=== PATIENT | male | born 1955 | race Caucasian/White ===

== ENCOUNTER 2023-11-16 09:04 | Observation (INO) | payer OTHER ==
[2023-11-16 09:41] LABS: Absolute Basophils 0.1 K/uL (0-0.5); Absolute Eosinophils 0.2 K/uL (0-0.5); Absolute Lymphocytes (CBC) 1.5 K/uL (0.7-4.9); Absolute Monocytes 1.4 K/uL (0.1-1.3); Absolute Neutrophil 7.5 K/uL (1.8-8.0); Basophils % 0.7 % (0-1.3); Eosinophils % 1.9 % (0-4.4); Hematocrit 43.4 % (39.6-49.0); Hemoglobin 14.9 g/dL (13.6-17.9); Lymphocytes % 14.4 % (15.3-44.8); MCH 32.7 pg (27.0-35.0); MCHC 34.2 g/dL (32.0-36.0); MCV 95.4 fL (80-100); MPV 6.4 fL (7.6-11.3); Monocytes % 12.8 % (3.3-12.3); Neutrophils % 70.2 % (41.7-73.7); Nucleated Red Blood Cells % 0.1 % (0-0); Platelets 392 thou/uL (152-406); RBC Red Blood Cell Count 4.55 M/uL (4.33-5.43); Red Cell Distribution Width 12.9 % (12.1-15.2)
[2023-11-16 09:43] LABS: Protime INR 1.07
[2023-11-16 09:59] LABS: SARS-CoV-2 Antigen CONTROL BLUE LINE VIS/BG OK; SARS-CoV-2 Antigen Rapid Res Negative (Negative)
[2023-11-16 10:09] LABS: Albumin 3.2 g/dL (3.4-5.0); Albumin/Globulin Ratio 0.8 (1.1-1.8); Anion Gap 10.9 mEq/L (5.0-15.0); Bilirubin Direct 0.2 mg/dL (0-0.2); Bilirubin Indirect, Calculated 0.3 mg/dL (0.2-0.8); Bilirubin Total 0.5 mg/dL (0.2-1.0); Globulin 3.9 g/dL (2.3-3.5); Potassium 3.9 mEq/L (3.5-5.1); Protein, Total 7.1 g/dL (6.4-8.2); Troponin High Sensitivity 3.4 pg/mL (<58.9)
--- NOTE | 2023-11-16 11:11 | EDPHYS ---
Physician Documentation [facility] Name: Pastor Salter Age: 68 yrs Sex: Male : 1955 Arrival Date: 11/16/2023 Time: 09:04 Bed 20 Private MD: ED Physician Larry Pacheco HPI: 11/15 09:30 This 68 yrs old Male presents to ER via Ambulatory with complaints of Shortness Of sp3 Breath, Chest Pain, Flank Pain. 09:30 68-year-old male with history of COPD, hypertension, hyperlipidemia now presents to the [facility] ED with chief complaint shortness of breath, left-sided chest pain for approximately 2 to 3 weeks. He states he feels like "he is having an asthma attack. He does endorse cough but denies headache, neck pain, fever, upper respiratory/rhinorrhea type symptoms abdominal pain, nausea, vomiting, diarrhea, back pain, prolonged immobilization, recent travel history, known sick contacts, rash, syncope, near syncope, neurological deficits, or any other signs or symptoms on ROS at this time.. Historical: - Allergies: 09:13 PENICILLINS; ko1 - PMHx: 09:13 Chronic obstructive lung disease; Hypertensive disorder; Hypercholesterolemia; ko1 - PSHx: 09:14 None; ko1 - Immunization history:: Adult Immunizations unknown. - Infectious Disease History:: Denies. - Social history:: Smoking status: Patient reports the use of cigarette tobacco products, smokes one-half pack cigarettes per day. ROS: 09:31 Constitutional: Negative for fever, chills, and weight loss, Eyes: Negative for injury, sp3 pain, redness, and discharge, ENT: Negative for injury, pain, and discharge, Neck: Negative for injury, pain, and swelling, Abdomen/GI: Negative for abdominal pain, nausea, vomiting, diarrhea, and constipation, Back: Negative for injury and pain, MS/Extremity: Negative for injury and deformity, Skin: Negative for injury, rash, and discoloration, Neuro: Negative for headache, weakness, numbness, tingling, and seizure, Psych: Negative for depression, anxiety, suicide ideation, homicidal ideation, and hallucinations, Allergy/Immunology: Negative for hives, rash, and allergies, Endocrine: Negative for neck swelling, polydipsia, polyuria, polyphagia, and marked weight changes, Exam: 09:32 Constitutional: This is a well developed, well nourished patient who is awake, alert, sp3 and in no acute distress. Head/Face: Normocephalic, atraumatic. Eyes: Pupils equal round and reactive to light, extra-ocular motions intact. Lids and lashes normal. Conjunctiva and sclera are non-icteric and not injected. Cornea within normal limits. Periorbital areas with no swelling, redness, or edema. Neck: Trachea midline, no thyromegaly or masses palpated, and no cervical lymphadenopathy. Supple, full range of motion without nuchal rigidity, or vertebral point tenderness. No Meningismus. Chest/axilla: Normal chest wall appearance and motion. Nontender with no deformity. No lesions are appreciated. Cardiovascular: Regular rate and rhythm with a normal S1 and S2. No gallops, murmurs, or rubs. Normal PMI, no JVD. No pulse deficits. Respiratory: Lungs have equal breath sounds bilaterally, clear to auscultation and percussion. No rales, rhonchi or wheezes noted. No increased work of breathing, no retractions or nasal flaring. Abdomen/GI: Soft, non-tender, with normal bowel sounds. No distension or tympany. No guarding or rebound. No evidence of tenderness throughout. Back: No spinal tenderness. No costovertebral tenderness. Full range of motion. Skin: Warm, dry with normal turgor. Normal color with no rashes, no lesions, and no evidence of cellulitis. MS/ Extremity: Pulses equal, no cyanosis. Neurovascular intact. Full, normal range of motion. Neuro: Awake and alert, GCS 15, oriented to person, place, time, and situation. Cranial nerves II-XII grossly intact. Motor strength 5/5 in all extremities. Sensory grossly intact. Cerebellar exam normal. Normal gait. Psych: Awake, alert, with orientation to person, place and time. Behavior, mood, and affect are within normal limits. 09:32 ECG was reviewed by the Attending Physician. EKG demonstrates normal sinus rhythm at 85 bpm with normal intervals, normal QRS, normal axis, normal ST's ST segments without evidence of acute ischemia. Vital Signs: 09:14 BP 165 / 103; Pulse 95; Resp 16; Temp 97.4; Pulse Ox 95% on R/A; ko1 09:41 BP 153 / 105; Pulse 88; Resp 18; Pulse Ox 97% on R/A; ld1 11:04 BP 146 / 99; Pulse 91; Resp 18; Pulse Ox 96% on R/A; ld1 12:15 BP 162 / 89; Pulse 79; Resp 18; Pulse Ox 97% on R/A; ld1 MDM: 09:16 Patient medically screened. sp3 09:32 Data reviewed: vital signs, nurses notes, lab test result(s), EKG, radiologic studies. sp3 ED course: 68-year-old male with PMH above now with shortness of breath and chest pain. Differential diagnosis is broad and includes COPD exacerbation, bronchitis, pneumonia, upper respiratory infection, COVID-19, influenza, acute coronary syndrome and associated pathologies, PE, gastritis, GI related pathology, among others. Workup will be broad and include EKG, CT chest PE protocol, laboratory values, viral swabs and general supportive care. Disposition pending workup and patient course.. 11:09 ED course: Patient with large pleural effusion but no malignancy noted on CT chest. No sp3 PE noted either. Patient will get admitted for further workup and evaluation.. 11/15 09:17 Order name: Basic Metabolic Panel; Complete Time: 10:19 3 11/15 09:17 Order name: CBC with Diff; Complete Time: 10:19 3 11/15 09:17 Order name: LFT's; Complete Time: 10:19 sp11/15 09:17 Order name: Magnesium; Complete Time: 10:19 3 11/15 09:17 Order name: NT PRO-BNP; Complete Time: 10:19 3 11/15 09:17 Order name: PT-INR; Complete Time: 10:19 sp3 11/15 09:17 Order name: Troponin HS; Complete Time: 10:19 3 11/15 09:23 Order name: Flu; Complete Time: 10:19 3 11/15 09:23 Order name: SARS RAPID; Complete Time: 10:19 3 11/15 11:32 Order name: Basic Metabolic Panel EDKY 11/15 11:32 Order name: Basic Metabolic Panel EDKY 11/15 11:32 Order name: Basic Metabolic Panel EDKY 11/15 11:32 Order name: CBC with Automated Diff EDKY 11/15 11:32 Order name: CBC with Automated Diff EDMS 11/15 11:32 Order name: CBC with Automated Diff EDMS 11/15 11:32 Order name: Magnesium EDMS 11/15 11:32 Order name: Magnesium EDMS 11/15 11:32 Order name: Magnesium EDMS 11/15 11:32 Order name: Phosphorus EDMS 11/15 11:32 Order name: Phosphorus EDMS 11/15 11:32 Order name: Phosphorus EDMS 11/15 09:17 Order name: XRAY Chest (1 view); Complete Time: 11:29 sp3 11/15 09:23 Order name: CT Chest For PE Angio; Complete Time: 11:29 sp3 11/15 09:17 Order name: EKG; Complete Time: 09:17 sp3 11/15 11:32 Order name: CONS Physician Consult EDMS 11/15 09:17 Order name: Cardiac monitoring; Complete Time: 09:34 sp3 11/15 09:17 Order name: EKG - Nurse/Tech; Complete Time: 09:34 sp3 11/15 09:17 Order name: IV Saline Lock; Complete Time: 09:34 sp3 11/15 09:17 Order name: Labs collected and sent; Complete Time: 09:34 sp3 11/15 09:17 Order name: O2 Per Protocol; Complete Time: 09:20 sp3 11/15 09:17 Order name: O2 Sat Monitoring; Complete Time: 09:20 sp3 Administered Medications: No medications were administered Disposition Summary: 11/16/23 11:10 Hospitalization Ordered Notes: Hospitalization Status: Inpatient Admission sp3 Provider: Rios Rodriguez sp3 Location: Telemetry/[facility] (Inpatient) sp3 Condition: Stable sp3 Problem: an acute exacerbation sp3 Symptoms: have worsened sp3 Bed/Room Type: Standard sp3 Room Assignment: 220(11/16/23 13:23) em1 Diagnosis - Pleural effusion left side, shortness of breath, chest pain sp3 Forms: - Medication Reconciliation Form sp3 - SBAR form sp3 - Leadership Thank You Letter sp3 Signatures: Dispatcher [employer] Davidson Siu em1 Larry Pacheco MD MD sp3 Vilma Bradford, RN RN ko1 Corrections: (The following items were deleted from the chart) 13:23 11:10 sp3 em1
--- NOTE | 2023-11-16 11:11 | ER ---
Nurse's Notes [facility] [place] Name: Pastor Salter Age: 68 yrs Sex: Male : 1955 Arrival Date: 11/16/2023 Time: 09:04 Bed 20 Private MD: Diagnosis: Pleural effusion left side, shortness of breath, chest pain Presentation: 11/15 09:11 Chief complaint: Patient states: short of breath for about 3 weeks, more tight on the ko1 left side, occasional pain with inspiration on the left side. Feels like I cant get a full breath in. Coronavirus screen: At this time, the client does not indicate any symptoms associated with coronavirus-19. Ebola Screen: No symptoms or risks identified at this time. Initial Sepsis Screen: Does the patient meet any 2 criteria? No. Patient's initial sepsis screen is negative. Does the patient have a suspected source of infection? No. Patient's initial sepsis screen is negative. Risk Assessment: Do you want to hurt yourself or someone else? Patient reports no desire to harm self or others. Onset of symptoms is unknown. 09:11 Method Of Arrival: Ambulatory ko1 09:11 Acuity: MARYAM 3 ko1 Triage Assessment: 09:14 General: Appears in no apparent distress. Behavior is calm, cooperative, appropriate ko1 for age. Pain: Denies pain. Respiratory: Reports shortness of breath on exertion Onset: The symptoms/episode began/occurred at an unknown time. the patient has mild shortness of breath. Historical: - Allergies: 09:13 PENICILLINS; ko1 - PMHx: 09:13 Chronic obstructive lung disease; Hypertensive disorder; Hypercholesterolemia; ko1 - PSHx: 09:14 None; ko1 - Immunization history:: Adult Immunizations unknown. - Infectious Disease History:: Denies. - Social history:: Smoking status: Patient reports the use of cigarette tobacco products, smokes one-half pack cigarettes per day. Screenin:[address] [facility] ED Fall Risk Assessment (Adult) History of falling in the last 3 months, ld1 including since admission No falls in past 3 months (0 pts) Confusion or Disorientation No (0 pts) Intoxicated or Sedated No (0 pts) Impaired Gait No (0 pts) Mobility Assist Device Used No (0 pt) Altered Elimination No (0 pt) Score/Fall Risk Level 0 - 2 = Low Risk Oriented to surroundings, Maintained a safe environment, Educated pt \T\ family on fall prevention, incl call for assistance when getting out of bed, Assessed \T\ reinforced patient's understanding of fall precautions, Provided non-skid footwear, Hourly rounding (assess needs \T\ fall precautionary measures) done, Used ambulatory aids as needed (educated on \T\ assisted with), Used gait belt as appropriate. Abuse screen: Denies threats or abuse. Denies injuries from another. Nutritional screening: No deficits noted. Tuberculosis screening: No symptoms or risk factors identified. Assessment: 09:41 General: Appears in no apparent distress. comfortable, Behavior is calm, cooperative, ld1 appropriate for age. Pain: Denies pain. Neuro: Level of Consciousness is awake, alert, obeys commands, Oriented to person, place, time, situation, Appropriate for age. Cardiovascular: Capillary refill < 3 seconds Patient's skin is warm and dry. Rhythm is sinus rhythm. Respiratory: Reports shortness of breath at rest on exertion Airway is patent Respiratory effort is even, unlabored, Breath sounds are clear bilaterally. GI: Abdomen is flat, non-distended. : No signs and/or symptoms were reported regarding the genitourinary system. EENT: No signs and/or symptoms were reported regarding the EENT system. Derm: No signs and/or symptoms reported regarding the dermatologic system. Musculoskeletal: No signs and/or symptoms reported regarding the musculoskeletal system. Vital Signs: 09:14 BP 165 / 103; Pulse 95; Resp 16; Temp 97.4; Pulse Ox 95% on R/A; ko1 09:41 BP 153 / 105; Pulse 88; Resp 18; Pulse Ox 97% on R/A; ld1 11:04 BP 146 / 99; Pulse 91; Resp 18; Pulse Ox 96% on R/A; ld1 12:15 BP 162 / 89; Pulse 79; Resp 18; Pulse Ox 97% on R/A; ld1 ED Course: 09:08 Patient arrived in ED. mg5 09:13 Triage completed. ko1 09:14 Arm band placed on right wrist. Patient placed in an exam room, on a stretcher, on ko1 hall monitor, on pulse oximetry, Patient notified of wait time. 09:15 Larry Pacheco MD is Attending Physician. sp3 09:20 Florian, Marge, RN is Primary Nurse. ld1 09:34 Inserted saline lock: 20 gauge in right antecubital area, using aseptic technique. ld1 Blood collected. Flushed with 10 mL NS. 09:41 Patient has correct armband on for positive identification. Placed in gown. Bed in low ld1 position. Call light in reach. Side rails up X2. hall monitor on. Pulse ox on. NIBP on. Door closed. Noise minimized. Warm blanket given. 09:41 SARS RAPID Sent. ld1 09:41 Flu Sent. ld1 09:50 XRAY Chest (1 view) In Process Unspecified. EDMS 10:07 CT Chest For PE Angio In Process Unspecified. EDMS 11:10 Rios Rodriguez is Hospitalizing Provider. sp3 12:03 203 CM met with Mr Simons and his Ashley at the bedside in the ED exam room. ane Patient identified by name and . Demographic sheet confirmed. Mr Simons states he lives with his Ashley in a single story home. He reports prior to admission, he performs ADLs independently and without physical limitations. He states he has an MPOA in place, no DME, no HH, no home oxygen or other medical services at this time. 1210 Judith Ramsey at the bedside to discuss plan of care. 1218 Patient wishes to return home upon discharge and Ashley states she will transport Mr Simons home when he is discharged. CM team will continue to follow and coordinate care. Administered Medications: No medications were administered Outcome: 11:10 Decision to Hospitalize by Provider. sp3 14:31 Admitted to Med/surg tl4 14:31 Condition: stable 14:31 Instructed on the need for admit, 14:31 Patient left the ED. tl4 Signatures: Dispatcher [employer] EDMS Marge Florian, RN RN ld1 Larry Pacheco MD MD sp3 Vilma Bradford, TAMIA RN Sindi Kruse mg5 Wilfred Vila RN RN tl4 Rayna Hui RN RN ane
--- NOTE | 2023-11-16 11:20 | RAD REPORT ---
EXAM DESCRIPTION: Yuri Single View11/16/2023 9:48 am CLINICAL HISTORY: Shortness of breath COMPARISON: 2014 FINDINGS: Large left pleural effusion with passive left atelectasis Right lung appears clear of acute infiltration. Heart is normal size Due to technical issues this exam could not be dictated until now. A preliminary report was given to the emergency room IMPRESSION: Large left pleural effusion
--- NOTE | 2023-11-16 11:23 | RAD REPORT ---
EXAM DESCRIPTION: CT - Chest For Pe Angio - 11/16/2023 10:05 am CLINICAL HISTORY: Chest pain COMPARISON: None. TECHNIQUE: Dynamically enhanced axial 3 mm thick images of the chest were obtained during administra tion of 100 mL Isovue 370 IV contrast. Coronal and oblique reconstruction images were generated and r eviewed. Exam utilizes a protocol for optimal evaluation of pulmonary arterial tree. Maximum intensity projections 3D imaging was utilized All CT scans are performed using dose optimization technique as appropriate and may include automated exposure control or mA/KV adjustment according to patient size. FINDINGS: A pulmonary embolus is not seen. A thoracic aortic aneurysm is not noted. Large left pleural effusion with passive left lung atelectasis. After the pleural effusion has resolv ed followup CT chest recommended to assess the left lung Mild bilateral ground-glass lung opacities Chronic deformity L1 vertebral body Due to technical issues this exam could not be dictated until now. A preliminary report was given to the emergency room IMPRESSION: Negative for a pulmonary embolism. Large left pleural effusion Mild bilateral ground-glass opacities may represent pulmonary edema, pneumonia or pneumonitis
[2023-11-16] MEDS ORDERED: ACETAMINOPHEN 500 MG TAB PO PRN (11:26)
[2023-11-16] MEDS ORDERED: ACETAMINOPHEN 325 MG TABLET PO PRN (11:26)
[2023-11-16] MEDS ORDERED: HYDRALAZINE HCL 20 MG/ML VIAL IV PRN (11:30)
--- NOTE | 2023-11-16 12:23 | P.CNS ---
Date of Consult: 11/16/23 Reason for Consult: Large left-sided pleural effusion Chief Complaint: Chest pain shortness of breath History of Present Illness: Is 68 years of age heavy smoker admitted with 3-week onset of increasing left- sided pleuritic chest pain associated with dyspnea became progressively worse and it appeared in the emergency room and was found to have a massive left-sided pleural effusion - Past Medical/Surgical History Diabetic: No -: Hyperlipidemia -: Pretension Past Surgical History: Patient denies surgical history Review of Systems 10-point ROS is otherwise unremarkable Physical Examination General: Alert, Oriented x3 HEENT: Atraumatic Neck: Supple Respiratory: Diminished (Markedly diminished on the left side) Cardiovascular: No edema, Regular rate/rhythm, Normal S1 S2 Gastrointestinal: Normal bowel sounds, Soft and benign Laboratory Data (last 24 hrs) 11/16/23 11/16/23 11/16/23 09:32 09:32 09:32 WBC 10.60 Hgb 14.9 Hct 43.4 Plt Count 392 PT 12.0 INR 1.07 Sodium 133 L Potassium 3.9 BUN 5 L Creatinine 0.69 L Glucose 101 Magnesium 2.0 Total Bilirubin 0.5 AST 20 ALT 24 Alkaline Phosphatase 87 - Problems (1) Pleural effusion Current Visit: Yes Status: Acute Plan: Patient is 68 years of age admitted with a massive left-sided pleural effusion has been symptomatic for the past 3 weeks heavy smoker most likely this is lung cancer large-volume thoracentesis pleural fluids studies have been ordered will discharge after thoracentesis will follow-up with me next week the patient about the possibility of malignancy labs chemistries all reviewed
--- NOTE | 2023-11-16 13:36 | P.HP ---
Certification for Inpatient Patient admitted to: Observation With expected LOS: <2 Midnights Patient will require the following post-hospital care: None Practitioner: I am a practitioner with admitting privileges, knowledge of patient current condition, hospital course, and medical plan of care. Services: Services provided to patient in accordance with Admission requirements found in Title 42 Section 412.3 of the Code of Federal Regulations Patient History Date of Service: 11/16/23 Reason for admission: Chest pain shortness of breath History of Present Illness: Pastor Salter is a 68 year old male with Pmhx COPD, asthma, HTN, and hypercholesterolemia who presents to the ED with chief complaint of SOB with left-sided chest pain for three weeks which has worsened and now feel like his left lung is collapsed. He reports cigarette smoking and marijuana use but has cut back since he has not been able to breathe well. Both CTA chest and chest xray are showing a large pleural effusion to the left lung space. Laboratory evaluation unremarkable, blood pressure elevated 161/103, heart rate 95, afebrile. He is in no acute distress, on room air, and will be admitted for further treatment of left large pleural effusion, Dr. Wong consulted. CTA chest reports "Negative for a pulmonary embolism. Large left pleural effusion. Mild bilateral ground-glass opacities may represent pulmonary edema, pneumonia or pneumonitis." Chest x-ray reports "Large left pleural effusion with passive left atelectasis. Right lung appears clear of acute infiltration. Heart is normal size." Pastor will be admitted to hospitalist service for further treatment of left large pleural effusion Allergies Penicillins Allergy (Verified 11/16/23 15:24) Hives/Rash Home Medications: Ezetimibe [Zetia*] 10 mg PO DAILY 11/16/23 Nebivolol HCl 2.5 mg PO DAILY 11/16/23 Olmesartan Medoxomil 20 mg PO BEDTIME 11/16/23 Tadalafil [Cialis] 5 mg PO DAILY 11/16/23 terbinafine HCL [Terbinafine HCl] 250 mg PO DAILY 11/16/23 - Past Medical/Surgical History Diabetic: No -: Hyperlipidemia -: Hypertension -: COPD Past Surgical History: Patient denies surgical history - Social History Smoking Status: Current every day smoker Alcohol use: Yes CD- Drugs: Yes Physical Examination - Physical Exam General: Alert, In no apparent distress, Oriented x3 HEENT: Atraumatic, Normocephalic, PERRLA Neck: Supple, 2+ carotid pulse no bruit Respiratory: Normal air movement, Diminished (Left lung reynolds) Cardiovascular: Normal pulses, Regular rate/rhythm, Normal S1 S2 Capillary refill: <2 Seconds Gastrointestinal: Normal bowel sounds, Soft and benign Musculoskeletal: No clubbing Integumentary: No rashes Neurological: Normal speech, Normal tone - Studies Laboratory Data (last 24 hrs) 11/16/23 11/16/23 11/16/23 09:32 09:32 09:32 WBC 10.60 Hgb 14.9 Hct 43.4 Plt Count 392 PT 12.0 INR 1.07 Sodium 133 L Potassium 3.9 BUN 5 L Creatinine 0.69 L Glucose 101 Magnesium 2.0 Total Bilirubin 0.5 AST 20 ALT 24 Alkaline Phosphatase 87 Microbiology Data (last 24 hrs): 11/16/23 09:35 Nasopharnyx Influenza Type A Antigen Screen - Final 11/16/23 09:35 Nasopharnyx Influenza Type B Antigen Screen - Final Assessment and Plan - Plan Assessment and Plan Acute Left Large Pleural Effusion History of COPD/asthma -Chest x-ray reports "large left pleural effusion with passive left atelectasis. Right lung appears clear of acute infiltration. Heart is normal size." -CT chest PE protocol reports "Negative for a pulmonary embolism. Large left pleural effusion. Mild bilateral ground-glass opacities may represent pulmonary edema, pneumonia or pneumonitis." -Consult Dr. Bailey -N.p.o. at midnight, thoracentesis in the a.m. -follow pathology s/p thoracentesis -Oxygen supplementation as needed Hisotry of HTN/hypercholesterolemia -Continue home medication Cigarette smoking abuse Marijuana abuse -cessation education provided DVT PPx SCDs Full code 24 hour OBS Discharge Plan: Home Plan to discharge in: 24 Hours - Advance Directives Does patient have a Living Will: No Does patient have a Durable POA for Healthcare: No
[2023-11-16 15:16] VITALS: O2SAT 97
[2023-11-16 15:24] VITALS: BMI 24.1
[2023-11-16] MEDS: VALSARTAN 80 MG TAB PO SCH (20:21)
[2023-11-16] MEDS ORDERED: HOME MED 1 EA UNK (Olmesartan Medoxomil [Olmesartan Medoxomil] 20 MG Tablet) PO SCH (21:00)
[2023-11-17 04:38] LABS: Absolute Basophils 0.1 K/uL (0-0.5); Absolute Eosinophils 0.4 K/uL (0-0.5); Absolute Lymphocytes (CBC) 1.7 K/uL (0.7-4.9); Absolute Monocytes 1.5 K/uL (0.1-1.3); Absolute Neutrophil 6.9 K/uL (1.8-8.0); Basophils % 0.6 % (0-1.3); Hematocrit 42.3 % (39.6-49.0); Hemoglobin 14.4 g/dL (13.6-17.9); Lymphocytes % 16.1 % (15.3-44.8); MCH 32.4 pg (27.0-35.0); MCHC 34.2 g/dL (32.0-36.0); MCV 94.8 fL (80-100); MPV 6.4 fL (7.6-11.3); Monocytes % 14.3 % (3.3-12.3); Platelets 360 thou/uL (152-406); RBC Red Blood Cell Count 4.46 M/uL (4.33-5.43)
[2023-11-17 08:18] VITALS: TEMP 97.8
[2023-11-17] MEDS ORDERED: NEBIVOLOL HCL 2.5 MG PO SCH (09:00)
--- NOTE | 2023-11-17 09:43 | RAD REPORT ---
EXAM DESCRIPTION: US - Thoracentesis w/ US Guide - 11/17/2023 9:35 am CLINICAL HISTORY: Pleural effusion. Left sided effusion COMPARISON: <Comparisons> FINDINGS: Preoperative diagnosis: Left pleural Post operative diagnosis: Same Conscious Sedation: None. Estimated blood loss: Minimal Specimens:A small volume of fluid was sent for requested lab studies. 1.5 liter of fluid was aspirate d. Complications: None Imaging: Ultrasound IMPRESSION: Successful ultrasound-guided thoracentesis as detailed. 1.5 liter of fluid was evacuated from the left pleural space .
--- NOTE | 2023-11-17 09:51 | RAD REPORT ---
EXAM DESCRIPTION: RAD - Chest Single View - 11/17/2023 9:43 am CLINICAL HISTORY: Status Post Thorocentesis COMPARISON: Chest Single View dated 11/16/2023; CHEST PA AND LAT 2 VIEW dated 06/02/2014; Thoracentesis w/ US Guide dated 11/17/2023; Chest For Pe Angio dated 11/16/2023 FINDINGS: Lines: None. Lungs: Likely atelectasis as result of the pleural fluid. Pleural: Mild decrease in size of the left pleural effusion which remains moderate. No pneumothorax . Cardiac: Partially obscured. Mediastinum: Within normal limits. Bones: No acute fractures. Other: None IMPRESSION: Mild decrease in size of the left pleural effusion following thoracentesis. 1.5 liter of fluid was aspirated. The effusion remains moderate. There is presumably underlying atelectasis. Solomon elate with fluid analysis. No pneumothorax.
[2023-11-17] MEDS: NEBIVOLOL HCL 5 MG TAB PO SCH (11:05)
[2023-11-17] MEDS: EZETIMIBE 10 MG TAB PO SCH (11:05)
[2023-11-17] MEDS: terbinafine HCL 250 MG TAB PO SCH (11:05)
[2023-11-17 11:06] VITALS: BP 178/98
--- NOTE | 2023-11-17 12:07 | P.PN ---
Subjective Date of Service: 11/17/23 Chief Complaint: S/p thoracentesis massive left-sided pleural effusion Is doing much better shortness of breath is improved 1.5 L of fluid was drained Review of Systems 10-point ROS is otherwise unremarkable Physical Examination - Vital Signs Temperature: 97.8 F Blood Pressure: 178/98 Pulse: 84 Respirations: 16 Pulse Ox (%): 93 - Physical Exam General: Alert, Oriented x3 Respiratory: Clear to auscultation bilaterally, Diminished (Patient on the left side) Cardiovascular: No edema, Regular rate/rhythm - Studies Microbiology Data (last 24 hrs): 11/16/23 09:35 Nasopharnyx Influenza Type A Antigen Screen - Final 11/16/23 09:35 Nasopharnyx Influenza Type B Antigen Screen - Final Assessment And Plan - Current Problems (Diagnosis) (1) Pleural effusion Current Visit: Yes Status: Acute Plan: Patient is 68 years of age admitted with a massive left-sided pleural effusion most likely is malignant s/p thoracentesis doing much better after 1 and 1.5 L of fluid drained plan to discharge home if the postop chest x-ray 2 hours after thoracentesis does not show any evidence of pneumothorax to follow-up with me next week
[2023-11-17 12:11] LABS: Appearance TURBID (CLEAR); Body Fluid Source PLEURAL; Body Fluid WBC 1981 /mm^3; Color of fluid Red (COLORLESS); Fluid Total Cells Count 100
[2023-11-17 12:12] LABS: Body Fluid Lymphocytes 34 %
--- NOTE | 2023-11-17 13:06 | P.DS ---
Admission Date: 11/16/23 Discharge Date: 11/17/23 Disposition: ROUTINE DISCHARGE Discharge Condition: FAIR Reason for Admission: S/p thoracentesis massive left-sided pleural effusion Brief History of Present Illness: Diagnosis Acute Left Large Pleural Effusion s/p left thoracentesis History of COPD/asthma Hisotry of HTN/hypercholesterolemia Cigarette smoking abuse Marijuana abuse HPI 11/16/2023 Pastor Salter is a 68 year old male with Pmhx COPD, asthma, HTN, and hypercholesterolemia who presents to the ED with chief complaint of SOB with left-sided chest pain for three weeks which has worsened and now feel like his left lung is collapsed. He reports cigarette smoking and marijuana use but has cut back since he has not been able to breathe well. Both CTA chest and chest xray are showing a large pleural effusion to the left lung space. Laboratory evaluation unremarkable, blood pressure elevated 161/103, heart rate 95, afebrile. He is in no acute distress, on room air, and will be admitted for further treatment of left large pleural effusion, Dr. Wong consulted. CTA chest reports "Negative for a pulmonary embolism. Large left pleural effusion. Mild bilateral ground-glass opacities may represent pulmonary edema, pneumonia or pneumonitis." Chest x-ray reports "Large left pleural effusion with passive left atelectasis. Right lung appears clear of acute infiltration. Heart is normal size." Pastor will be admitted to hospitalist service for further treatment of left large pleural effusion Hospital Course: Pastor Salter is a pleasant 68-year-old male with a past medical history significant for COPD, asthma, HTN, and hypercholesterolemia who was admitted to the [facility] on 11/16/2023 for large left pleural effusion. Care presented to the ED with chief complaint of chest pain for 3 weeks and increased worsening breathing. He described his chest pain as feeling like his left lung was collapsed. He reports quitting smoking 2 weeks ago when this all occurred. CTA chest and chest x-ray both revealed left large pleural effusion. Dr. Kendall was consulted and ordered a thoracentesis which was performed on 11/17/2023. He has tolerated procedure well, now has clear breath sounds to left pleural space, afebrile, pain well-controlled, on room air, and hemodynamically stable for discharge. On 11/17/2023, Pastor was seen on morning rounds and deemed medically stable for discharge. Pastor was discharged with instructions to schedule follow-up appointments with PCP and Dr. Kendall. Pastor was provided prescriptions for tra madol. Physical Exam General: AAO x3, NAD HEENT: Atraumatic, Normocephalic, PERRLA Neck: Supple, 2+ carotid pulse no bruit Respiratory: Normal air movement, bilaterally clear breath sounds, symmetrical chest wall movement, on room air Cardiovascular: Normal pulses, RRR, Normal S1 S2 Capillary refill: <2 Seconds Gastrointestinal: Normal bowel sounds, Soft and benign on palpation, ND/NT Musculoskeletal: No clubbing Integumentary: No rashes Neurological: Normal speech, Normal tone Vital Signs/Physical Exam: Temp Pulse Resp BP Pulse Ox 97.8 F 84 16 178/98 H 93 11/17/23 12:07 11/17/23 12:07 11/17/23 12:07 11/17/23 12:07 11/17/23 12:07 Laboratory Data at Discharge: WBC 10.50 thou/uL (4.3-10.9) 11/17/23 04:01 Hgb 14.4 g/dL (13.6-17.9) 11/17/23 04:01 Hct 42.3 % (39.6-49.0) 11/17/23 04:01 Plt Count 360 thou/uL (152-406) 11/17/23 04:01 PT 12.0 SECONDS (9.4-12.5) 11/16/23 09:32 INR 1.07 11/16/23 09:32 Sodium 133 mEq/L (136-145) L 11/17/23 04:01 Potassium 4.0 mEq/L (3.5-5.1) 11/17/23 04:01 BUN 6 mg/dL (7-18) L 11/17/23 04:01 Creatinine 0.70 mg/dL (0.70-1.30) 11/17/23 04:01 Glucose 90 mg/dL (74-106) 11/17/23 04:01 Phosphorus 3.0 mg/dL (2.5-4.9) 11/17/23 04:01 Magnesium 2.0 mg/dL (1.6-2.4) 11/17/23 04:01 Total Bilirubin 0.5 mg/dL (0.2-1.0) 11/16/23 09:32 AST 20 U/L (15-37) 11/16/23 09:32 ALT 24 U/L (16-61) 11/16/23 09:32 Alkaline Phosphatase 87 U/L (45-117) 11/16/23 09:32 Home Medications: Ezetimibe [Zetia*] 10 mg PO DAILY 11/16/23 Nebivolol HCl 2.5 mg PO DAILY 11/16/23 Olmesartan Medoxomil 20 mg PO BEDTIME 11/16/23 Tadalafil [Cialis] 5 mg PO DAILY 11/16/23 terbinafine HCL [Terbinafine HCl] 250 mg PO DAILY 11/16/23 traMADol HCL [Ultram*] 50 mg PO Q6H PRN 4 Days #15 tab 11/17/23 New Medications: traMADol HCL [Ultram*] 50 mg PO Q6H PRN 4 Days #15 tab PRN Reason: Pain Physician Discharge Instructions: Thoracentesis successfully aspirated 1.5 liters. Specimen was sent to pathology for further testing and results will be reviewed at your visit with Dr. Kendall. Please use the incentive spirometer to help inflate your lung. 1. Please call and schedule a follow-up appointment with your PCP in 3-5 days - Please follow-up with your PCP for medication refills/adjustments 2. Please call and schedule a follow-up appointment with Dr. Kendall in one week -Fluid results will be discussed at that time. 3. Continue regular diet 4. activity restrictions, do not lift > 10 pounds for three days 5. Return to the ED if symptoms worsen New medications Tramadol 50 mg p.o. every 6 hours for 4 days Diet: Regular Activity: No lifting more than 10 lbs Followup: Jovan Santana MD [Primary Care Provider] - Jean-Pierre Kendall MD [ACTIVE - CAN ADMIT] -
--- NOTE | 2023-11-17 13:37 | RAD REPORT ---
EXAM DESCRIPTION: RADChest Single View11/17/2023 1:17 pm CLINICAL HISTORY: S/p FNA COMPARISON: Chest Single View dated 11/17/2023; Chest Single View dated 11/16/2023; CHEST PA AND LAT 2 V IEW dated 06/02/2014; Chest For Pe Angio dated 11/16/2023; Thoracentesis w/ US Guide dated 11/17/2023 TECHNIQUE: Portable AP view of the chest. FINDINGS: Decreased inspiratory effort somewhat limits evaluation. Stable patchy left central to bas al airspace opacities, with stable moderate left effusion. No pneumothorax or right-sided effusion. The cardiomediastinal contours are unremarkable. IMPRESSION: Stable left central bibasilar airspace opacities, with moderate effusion. No pneumothora x observed following thoracentesis.
--- NOTE | 2023-11-17 14:08 | EKG ---
Test Date: 2023-11-16 Test Time: 09:27:21 Crew Scheduler: Zia WILKES MEASUREMENT RESULTS: Intervals: Rate: 85 MD: 164 QRSD: 54 QT: 368 QTc: 437 [place]: P: 53 MD: 164 QRS: 46 T: 45 INTERPRETIVE STATEMENTS: Normal sinus rhythm Low voltage QRS Borderline ECG No previous ECG available for comparison Electronically Signed On 11-17-23 14:06:50 CDT by Joce Garrett
[2023-11-22 05:31] LABS: TOTAL PROTEIN, PLEURAL FLUID 4.3 g/dL
== END 2023-11-17 14:17 | disposition home or self-care (01) ==
LOC: ER 09:04 → ERHOLD 11:26 → 2ND 13:47
PROVIDERS: ADMIT Internal Medicine; ATTEND Internal Medicine
DX: J90 Pleural effusion, not elsewhere classified (principal); R07.9 Chest pain, unspecified; R06.02 Shortness of breath; J44.9 Chronic obstructive pulmonary disease, unspecified; J45.909 Unspecified asthma, uncomplicated; I10 Essential (primary) hypertension; E78.00 Pure hypercholesterolemia, unspecified; F17.210 Nicotine dependence, cigarettes, uncomplicated; F12.90 Cannabis use, unspecified, uncomplicated; Z88.0 Allergy status to penicillin; Z11.52 Encounter for screening for COVID-19
CPT/HCPCS: 93005; 85025 ×2; 80048 ×2; 36415; 88108; 89050; 83735 ×2; 87205; 83615; 84100; 84157; 85610; 82945; 80076; 88305; 84484; 87015; 87206; 83880; 87116; 87102; 87804 ×2; 71275; 71045 ×3; 32555; 99285; 84311; 87811; Q9967; G0378; J0360

== ENCOUNTER 2023-11-29 11:39 | Day surgery (SDC) | payer OTHER ==
[2023-11-29] MEDS ORDERED: Ringers Lactate 1,000 ML IV ONE (12:00)
[2023-11-29] MEDS ORDERED: dexAMETHasone 10 MG/ML VIAL ONE (12:52)
[2023-11-29] MEDS ORDERED: LIDOCAINE 2% MPF 5 ML VIAL ONE (12:52)
[2023-11-29] MEDS ORDERED: FENTANYL CITR 100 MCG/2 ML ONE (12:52)
[2023-11-29] MEDS ORDERED: ONDANSETRON 4 MG/2 ML VIAL ONE (12:52)
[2023-11-29] MEDS ORDERED: MIDAZOLAM HCL 2 MG/2 ML INJ ONE (12:52)
[2023-11-29] MEDS ORDERED: propofoL 200 MG/20 ML VIAL IV ONE (12:52)
[2023-11-29] MEDS ORDERED: KETOROLAC 30 MG/ML INJ ONE (12:52)
[2023-11-29] MEDS ORDERED: LIDOCAINE HCL/EPINEPHRINE 20 ML MDV ONE (12:53)
[2023-11-29] MEDS ORDERED: CLINDAMYCIN 300MG D5W 300 MG/50 ML BAG IV SCH (13:00)
--- NOTE | 2023-11-29 14:01 | P.OP ---
Preoperative diagnosis: LEFT Malignant Effusion Postoperative diagnosis: LEFT Malignant Effusion Primary procedure: Placement of LEFT Thoracic Pleur-X Drain Anesthesia: MAC + Local Estimated blood loss: < 1cc Specimen: Pleural Fluid Findings: 1 Liter of Pleural Fluid Complications: None Drain(s): Other (Pleur-X ) Transferred to: Recovery Room Condition: Good
--- NOTE | 2023-11-29 14:36 | RAD REPORT ---
Procedure: Chest Single View History: Device placement pleural catheter placement Comparison: November 17, 2023 A left pleural catheter has been placed. The catheter extends medially and then inferiorly. The dista l portions of the catheter extend laterally with its tip near the left lower chest wall. A pneumothorax is not visualized. Large pleural effusion appears to be present. IMPRESSION: Placement of a left pleural catheter. A pneumothorax is not seen
[2023-11-29 15:49] VITALS: BP 145/81; TEMP 96.8; O2SAT 95
--- NOTE | 2023-11-29 20:45 | OP ---
Date of Procedure: 11/29/2023 Surgeon: Kory Blackwell MD, Preoperative Diagnosis: Left malignant effusion. Postoperative Diagnosis: Left malignant effusion. Procedure Performed: Placement of thoracic PleurX catheter. Anesthesia: MAC plus local 1% lidocaine. Estimated Blood Loss: 1 cc. Specimen: Pleural fluid. Findings: 1 L of pleural fluid returned. Complications: None. Implant/drain: PleurX catheter. Condition: The patient was transferred to recovery room in good condition. Procedure In Detail: After informed consent was obtained, the patient was brought to the operating r oom, prepped and draped in the usual sterile fashion. After adequate anesthesia was achieved, I anes thetized an area of the fourth to fifth intercostal space on the left thoracic space near the nipple line. I then entered the chest wall cavity with the Finder needle and ultimately cannulated the ches t cavity returning dark reddish straw-colored fluid. A wire was advanced at this point into the cavi ty without evidence of complication. I then found an area on the chest wall anterior inferior from t he insertion site. I made a counter incision, anesthetized the tract, and then placed a tunneling de vice through this site. I performed sequential dilatation using Seldinger technique, ultimately plac ed the catheter using the introducer sheath into the chest cavity without incident or complication. Straw-colored fluid was immediately returned. Cuff was in good anatomic position, pulled approximate ly 1 L of dark red straw-colored fluid, and it was sent for analysis at this point. The area was irr igated and closed with interrupted silk suture and sterile dressing was placed over top. The patient tolerated the procedure well without incident or complication and transferred to PACU in good condit ion. All counts were correct at the end of the case. TK/MODL Voice ID: [id number] Report ID: [id number]
== END 2023-11-29 15:42 | disposition home or self-care (01) ==
LOC: OR 11:39
PROVIDERS: ATTEND Surgery
PROC: 0W9B30Z Drainage of Left Pleural Cavity with Drainage Device, Percutaneous Approach (ICD-10-PCS; principal; 2023-11-29 14:15)
DX: J90 Pleural effusion, not elsewhere classified (principal)
CPT/HCPCS: 71045; 87015; 87070; 87116; 87206; 88108; 88305; J1100; J2001; J2250; J2405; J2704; J3010; J7120

== ENCOUNTER 2024-01-19 06:51 | Day surgery (SDC) | payer OTHER ==
[2024-01-18 14:19] LABS: Absolute Basophils 0.1 K/uL (0-0.5); Absolute Eosinophils 0.3 K/uL (0-0.5); Absolute Monocytes 1.9 K/uL (0.1-1.3); Absolute Neutrophil 11.5 K/uL (1.8-8.0); Basophils % 0.7 % (0-1.3); Hematocrit 40.6 % (39.6-49.0); Hemoglobin 13.5 g/dL (13.6-17.9); Lymphocytes % 12.7 % (15.3-44.8); MCH 30.5 pg (27.0-35.0); MCHC 33.3 g/dL (32.0-36.0); MCV 91.5 fL (80-100); MPV 6.3 fL (7.6-11.3); Monocytes % 11.8 % (3.3-12.3); Neutrophils % 72.8 % (41.7-73.7); Platelets 409 thou/uL (152-406); RBC Red Blood Cell Count 4.44 M/uL (4.33-5.43); Red Cell Distribution Width 12.4 % (12.1-15.2)
[2024-01-18 14:34] LABS: Anion Gap 8.2 mEq/L (5.0-15.0); Potassium 4.2 mEq/L (3.5-5.1)
[2024-01-18 14:45] LABS: Anisocytosis 1+; Blood Morphology Comment NOTED (NOT SEEN); Macrocytosis 1+; Microcytosis 1+; Platelet Estimate ADEQ; White Blood Cell Scan OK (OK)
[2024-01-19] MEDS ORDERED: NS 0.9% VIAL 20 ML ONE (07:06)
[2024-01-19] MEDS ORDERED: LIDOCAINE 1% 20 ML MDV ONE (07:07)
[2024-01-19] MEDS ORDERED: Ringers Lactate 1,000 ML IV ONE (07:08)
[2024-01-19] MEDS ORDERED: ONDANSETRON 4 MG/2 ML VIAL ONE (08:33)
[2024-01-19] MEDS ORDERED: LIDOCAINE 2% MPF 5 ML VIAL ONE (08:33)
[2024-01-19] MEDS ORDERED: propofoL 200 MG/20 ML VIAL IV ONE (08:33)
[2024-01-19] MEDS ORDERED: MIDAZOLAM HCL 2 MG/2 ML INJ ONE (08:35)
[2024-01-19] MEDS ORDERED: FENTANYL CITR 100 MCG/2 ML ONE (08:35)
[2024-01-19] MEDS: CEFAZOLIN SODIUM 2 GM/VIAL ONE (09:30)
[2024-01-19] MEDS ORDERED: Mastisol Adhesive Liq ONE (09:54)
[2024-01-19] MEDS: HEPARIN 5000 UNIT/ML 1 ML VIAL ONE (10:00)
--- NOTE | 2024-01-19 10:34 | P.OP ---
Date of Service: 01/19/24 Preop diagnosis: Lung cancer Postop diagnosis: Same Procedure performed: Placement of right IJ Port-A-Cath device with utilization of Doppler and fluoroscopy Surgeon: Enoch Parker MD Associate Dean Of Women: None Estimated blood loss: Minimal Specimen: None Findings: Normal anatomy Anesthesia: General Complications: None Drains: None Fluids and blood products: Nonapplicable Disposition: Recovery room Operative note: Patient brought to the OR and placed in the supine position. General anesthesia began. Patient prepped and draped in the usual sterile fashion. Lidocaine 1% infiltrated locally. Doppler device used to identify the right internal jugular vein. 18-gauge needle used to access the right internal jugular vein and guidewire passed. Position confirmed with fluoroscopy. 3 cm pocket created on the right anterior chest. Tunneling device used to tunnel the catheter between the 2 wounds. Seldinger technique used and tip of the catheter placed at the SVC right atrial junction under fluoroscopy. Catheter cut to appropriate size and attached to the Port-A-Cath device. Port-A-Cath device attached to subcutaneous tissue with 3-0 Vicryl. Port-A-Cath flushed with heparin and packed with heparin with good blood flow. 3-0 chromic used to reapproximate subcutaneous tissue and close skin. Sterile dressing applied. Patient awakened and taken to recovery room in good general condition. CC: Dr. Francisco's office
[2024-01-19] MEDS: HYDROMORPHONE HCL 1 MG/ML INJ ONE (10:58)
--- NOTE | 2024-01-19 11:04 | RAD REPORT ---
EXAMINATION: ONE VIEW CHEST XR CLINICAL INDICATION: Status post placement of Port-A-Cath device TECHNIQUE: Frontal chest projection is submitted. Examination is limited by patient positioning and t echnique. COMPARISON: 11/29/2023 FINDINGS: Left hemithorax is opacified with a chest tube in place. Most likely, there is a large pleural effusi on on the left. Right-sided port catheter is in place with tip in SVC. No pneumothorax. Heart is obscured. No displaced fractures identified. IMPRESSION: No postprocedure pneumothorax.
[2024-01-19 11:05] VITALS: O2SAT 93
[2024-01-19] MEDS ORDERED: HYDROCODONE/APAP 7.5/325 MG TAB ONE (11:29)
[2024-01-19] MEDS: HYDROCODONE/APAP 7.5/325 MG TAB PO PRN (11:37)
[2024-01-19 11:42] VITALS: BP 127/28; TEMP 97
--- NOTE | 2024-01-19 23:50 | RAD REPORT ---
EXAM: Fluoroscopy less than one hour CLINICAL HISTORY: Portacatheter placement FINDINGS: 12 fluoroscopic spot images obtained. Fluoroscopy time 0.8 minutes. Central venous catheter placed into the proximal right atrium. Procedure performed by
== END 2024-01-19 11:57 | disposition home or self-care (01) ==
LOC: OR 06:51
PROVIDERS: ATTEND Surgery
PROC: 0JH60WZ Insertion of Totally Implantable Vascular Access Device into Chest Subcutaneous Tissue and Fascia, Open Approach (ICD-10-PCS; principal; 2024-01-19 08:30)
DX: C34.12 Malignant neoplasm of upper lobe, left bronchus or lung (principal)
CPT/HCPCS: 85025; 80048; 36415; 71045; 36561; J1644 ×2; A4216; J2704; J2003; J2250; J3010; J1171; J2405; J7120; C1788; 76000

== ENCOUNTER 2024-02-11 10:05 | Inpatient (IN) | payer OTHER ==
--- OUTSIDE RECORDS SUMMARY | 2024-02-11 10:10 | XMS REPORT | Continuity of Care Document ---
Author Name Unknown Address [address] [facility] [address] [place] [id number] [facility] Address [address] [facility] [address] [place] [address] Care Team Providers Care Engineering Drawings Checker Name Role Phone TIARA MONTALVO Attending Clinician Unavailable Nestor Santana Attending Clinician Unavailable TATYANA MEADOWS Attending Clinician Unavailab Tatyana Yeung MD Attending Clinician [phone] China Santana MD Attending Clinician [phone] Irina Ny CRNA Attending Clinician [phone] Tiara Montalvo MD Attending Clinician [phone] TIARA MONTALVO Admitting Clinician Unavailable TATYANA MEADOWS Admitting Clinician Nyla simon Payers Payer Name Policy Type Policy Number Effective Date Expirati on Date Source MEDICARE A B [id number] 2020 00:00:00 [employer] INDEMNITY [id number] 2023 00:00:00 Problems Condition Name Condition Details Condition Category Status Onset Date Resolution Date Last Treatment Date Treating Clinician Comments Source [id number] Primary osteoarthr itis of left knee Problem [facility] [id number] Primary osteoarthr itis of right knee Problem [facility] Allergies, Adverse Reactions, Alerts Allergy Name Allergy Type Status Severity Reaction(s) Onset Date Inactive Date Treating Clinician Comments Source Penicill in [place]ens[place] ty to adverse reaction s Active Other (See Comments) 2023-03 00:00: 00 Unknown Reaction [facility] PENICILL IN Allergy Active Other 2023-03 00:00: 00 [facility] 0 Drug allergy Active Unknown [facility] Social History Social Habit Start Date Stop Date Quantity Comments Source History of tobacco use Cigarette Smoker [facility] Sexual orientation [facility] Alcohol intake 2024-01-08 00:00:00 2024-01-08 00:00:00 Current drinker of alcohol (finding) [facility] Tobacco use and exposure 2024-01-04 00:00:00 2024-01-04 00:00:00 Smokeless tobacco non-user [facility] Alcohol Comment 2024-01-04 00:00:00 2024-01-04 00:00:00 occasionally [facility] History of Social function 2023-12-25 00:00:00 2023-12-25 00:00:00 [facility] Sex Ass[birth year] At 1955 00:00:00 1955 00:00:00 M [facility] Smoking Status Start Date Stop Date Source Occasional tobacco smoker 2024-01-04 00:00:00 [facility] Current Smoker 2022-03-18 00:00:00 [facility] Medications Ordered Medication Name Filled Medication Name Start Date Stop Date Current Medication? Ordering Clinician Indication Dosage Frequency Signature (SIG) Comments Components Source budesonide- formoteroL (SYMBICORT) 160-4.5 mcg/actuati on inhaler 2023-03 08:15: 38 Yes 2{puff} Q.5D Inhale 2 puffs by mouth via inhaler 2 (two) times daily. [facility] doxepin (SINEquan) 10 MG capsule 2023-03 08:15: 38 Yes 10mg QD Take 1 capsule (10 mg total) by mouth nightly. [facility] ezetimibe (ZETIA) 10 mg tablet 2023-03 08:15: 38 Yes 10mg QD Take 1 tablet (10 mg total) by mouth nightly. [facility] nebivoloL (BYSTOLIC) 2.5 MG tablet 2023-03 08:15: 38 Yes 2.5mg QD Take 1 tablet (2.5 mg total) by mouth daily. [facility] olmesartan (BENICAR) 40 MG tablet 2023-03 08:15: 38 Yes 40mg QD Take 1 tablet (40 mg total) by mouth daily. [facility] terbinafine (LamiSIL) 250 mg tablet 2023-03 08:15: 38 Yes 250mg QD Take 1 tablet (250 mg total) by mouth daily. [facility] tadalafiL (TADALAFIL ORAL) 5 MG tablet 2023-03 08:15: 38 Yes 5mg Take 1 tablet (5 mg total) by mouth daily as needed for erectile dysfunctio n. [facility] gabapentin (NEURONTIN) 100 MG capsule 2023-03 08:15: 38 Yes 100mg Q.[id number] 3D Take 1 capsule (100 mg total) by mouth 3 (three) times daily. [facility] traMADoL (ULTRAM) 50 mg tablet 2023-03 08:15: 38 Yes 50mg Take 1 tablet (50 mg total) by mouth every 6 (six) hours as needed for pain. [facility] Kenalog (Triamcinol one) Kenalog (Triamcinol one) 03-17 00:00: 00 No 40mg [facility] Bupivicaine [place] Bupivicaine [place] 03-17 00:00: 00 No 2.5mg [facility] LIDOCAINE HCL 10MG/ML LIDOCAINE HCL 10MG/ML 2018-03 00:00: 00 No 4mL [facility] Kenalog (Triamcinol one) Kenalog (Triamcinol one) 2018-03 00:00: 00 No 1mL [facility] Cefuroxime Axetil Cefuroxime Axetil Yes Viraj Kohli not defined [facility] Cephalexin Cephalexin Yes Viraj Kohli not defined [facility] Mupirocin Mupirocin Yes Viraj Namga not defined [facility] Azithromyci n Azithromyci n Yes Viraj Kohli not defined [facility] Symbicort Symbicort Yes Viraj Kohli not defined [facility] Cefuroxime Axetil Cefuroxime Axetil No Cefuroxime Axetil Olmesartan Medoxomil 40 MG Olmesartan Medoxomil 40 MG No 1{table t} QD Olmesartan Medoxomil 40 MG Vital Signs Vital Name Observation Time Observation Value Comments S ource HEIGHT 2024-01-08 08:00:00 172.7 cm WEIGHT 2024-01-08 08:00:00 62.143 kg HEIGHT 2024-01-04 08:50:00 172.7 cm WEIGHT 2024-01-04 08:50:00 63.05 kg HEIGHT 2024-01-08 08:00:00 172.7 cm WEIGHT 2024-01-08 08:00:00 62.143 kg HEIGHT 2024-01-04 08:50:00 172.7 cm WEIGHT 2024-01-04 08:50:00 63.05 kg height 2022-03-17 14:30:00 67.5 [in_i] [facility] weight 2022-03-17 14:30:00 163 [lb_av] [facility] temperature 2022-03-17 14:30:00 98.6 [degF] [facility] bmi 2022-03-17 14:30:00 25.15 kg/m2 [facility] blood pressure systolic 2022-03-17 14:30:00 142 mm[Hg[facility] diastolic 2022-03-17 14:30:00 82 mm[Hg] [facility] Systolic blood pressure 2024-01-08 08:00:00 149 mm[Hg] [facility] Diastolic blood pressure 2024-01-08 08:00:00 91 mm[Hg] [facility] Body temperature 2024-01-08 08:00:00 36.06 Kristy [facility] Respiratory rate 2024-01-08 08:00:00 14 /min [facility] Body height 2024-01-08 08:00:00 172.7 cm [facility] Body weight 2024-01-08 08:00:00 62.143 kg [facility] BMI 2024-01-08 08:00:00 20.83 kg/m2 [facility] Oxygen saturation in Arterial blood by Pulse oximetry 2024-01-08 08:00:00 96 /min [facility] Procedures Procedure Date / Time Performed Performing Clinicia n Source BASIC METABOLIC PANEL 2024-01-08 08:24:00 China Santana [facility] Encounters Start Date/Time End Date/Time Encounter Type Admission Type Attending Clinicians Care Facility Care Department Encounter ID Source 2023-12-26 09:39:26 Outpatient TIARA CARRILLO [facility] Surgery [id number] [facility] 2022-03-17 16:45:00 Outpatient Nestor Santana [facility] [id number] [facility] 2022-03-15 13:09:00 Outpatient Nestor Santana [facility] [id number] [facility] 2022-02-15 08:28:01 Outpatient Nestor Santana [facility] [id number] [facility] 2024-01-08 08:05:00 2024-01-08 10:45:[address] [facility] [id number] [facility] 2024-01-08 09:26:00 2024-01-08 09:26:00 Anesthesia Event China Santana Maria [facility] [id number] [facility] 2024-01-08 07:25:00 2024-01-08 07:25:00 Hospital Encounter Tatyana Meadows [facility] [id number] [facility] 2024-01-08 00:00:00 2024-01-08 00:00:00 Travel [facility] [id number] [facility] 2024-01-04 09:00:00 2024-01-04 09:00:00 Hospital Encounter Tatyana Meadows [facility] [id number] [facility] 2024-01-04 00:00:00 2024-01-04 00:00:00 Outpatient TATYANA MORFIN [facility] [id number] [facility] 2024-01-04 00:00:00 2024-01-04 00:00:00 Travel [facility] [id number] [facility] 2024-01-03 00:00:00 2024-01-03 00:00:00 Hospital Encounter Tiara Montalvo [facility] [id number] [facility] 2022-03-17 00:00:00 2022-03-17 00:00:00 OFFICE VISIT NEW PT LEVEL 4 [facility] [id number] [facility] 2019-01-10 08:00:00 2019-01-10 08:00:00 Outpatient [facility] [id number] [facility] Results Test Description Test Time Test Comments Results Resul t Comments Source TISSUE EXAM 2024-02-04 18:36:50 Surgical Pathology Report Case: [id number] Authorizing Provider: Tatyana Meadows MD Collected: 01/08/2024 10:43 AM Ordering Location: [facility] Received: 01/08/2024 07:20 PM Pathologist: Manuel Sun MD Specimens: A) - Duodenal, duodenal biopsy via forceps B) - Biopsy, Gastric, r/o H. Pylori, via forceps C) - Biopsy, Esophagus, 38cm This addendum is issued to report the Helicobacter pylori immunohistochemical stain performed on part B.COMMENT: B. Helicobacter pylori immunohistochemical stain is POSITIVE.Addendum electronically signed by Manuel Sun MD on 02/04/2024 at 6:36 PMA. Duodenum, biopsy: -Chronic peptic duodenitisB. Stomach, biopsy:-Antral mucosa with mild to moderate chronic inactive gastritis and focal intestinal metaplasia-Oxyntic mucosa with mild chronic inactive gastritis -No Helicobacter organisms identified on routine stain (see comment) -No dysplasia identifiedC. Esophagus, 38 cm, biopsy: -Fragments of squamous epithelium with features suggestive of reflux esophagitis (up to 5 eosinophils per high-power field) Signing Pathologist Direct Phone Line: [phone] y signed by Manuel Sun MD on 01/13/2024 at 4:15 PMEndoscopy report reviewed.Helicobacter pylori immunohistochemical stain is pending; result will be reported in an addendum.[id number] x 3; 11199Inqvhwb adult health maintenance, gastroesophageal reflux disease, unspecified whether esophagitis present, solitary pulmonary noduleA. DuodenalReceived in formalin labeled with the patient's name, medical record number and "duodenal biopsy via forceps" are 2 cruz-pink mucosal biopsy fragments measuring 0.2 and 0.3 cm in greatest dimensions. Submitted in toto in A1. (nxr)B. Biopsy, GastricReceived in formalin labeled with the patient's name, medical record number and "gastric biopsy rule out H. pylori, BF forceps" are 4 cruz-pink mucosal biopsy fragments ranging from 0.1 to 0.4 cm in greatest dimensions. Submitted in toto in B1. (nxr)C. Biopsy, EsophagusReceived in formalin labeled with the patient's name, medical record number and "esophagus biopsy at 38 cm" are 2 white-cruz mucosal biopsy fragments measuring 0.3 and 0.4 cm in greatest dimensions. Submitted in toto in C1. (nxr)PerformedThe interpretation of this case included the use of immunohistochemistry or special stains.Control Slides Examined: In-house known positive controls were evaluated along with the test tissue. These control slides run alongside of the patients sample show appropriate staining. Internal positive and negative controls when available are evaluated Immunohistochemistry technical testing was performed at [facility], Pathology Laboratory where it was developed and its performance characteristics were determined. It has not been cleared or approved by the U.S. Food and Drug Administration. The FDA has determined that such clearance or approval is not necessary. The test is used for clinical purposes. It should not be regarded as investigational or for research. This laboratory is certified under the Clinical Laboratory Improvement Amendments of 1988 (CLIA-88) as qualified to perform high complexity clinical laboratory testing.[facility], Department of Pathology, [address] [place] [address], [facility], [address] [place] [address], [facility], [facility], [address] [place] [address], FINE NEEDLE ASPIRATE BY EBUS 2024-01-10 18:54:00 Medical Cytology Report Case: [id number] Authorizing Provider: Tiara Montalvo MD Collected: 01/08/2024 10:09 AM Ordering Location: [facility] Received: 01/09/2024 09:03 AM Pathologist: Hans Garcia MD Specimen: Lymph Node, Lower Paratracheal, Left, Station 4L LYMPH NODE, LEFT LOWER PARATRACHEAL STATION 4L, EBUS FNA BY CLINICIAN (CYTOSPINS AND CELL BLOCK OF ASPIRATE): - POSITIVE FOR MALIGNANCY - RARE CLUSTERS OF METASTATIC LUNG ADENOCARCINOMA. Signing Pathologist Direct Phone Line: [phone] y signed by Hans Garcia MD on 01/10/2024 at 6:53 PMTissue is insufficient for molecular testing.Tumor cells are positive for Roderick-EP4, TTF-1 and Napsin A (patchy). This immunoprofile supports the above diagnosis. Please see cases [id number] and [id number] through [id number], [id number], [id number], [phone] x 89 year old gentleman with newly diagnosed left lung adenocarcinoma. He was hospitalized in Nov to OSH with large left pleural effusion, which was noted to be malignant. He underwent TPC placement and has been draining approx 1L every other day. He underwent PET CT which showed a large left pleural effusion, FDG avid left lateral chest wall soft tissue and mediastinal adenopathy. LYMPH NODE, LOWER PARATRACHEAL, LEFT, STATION 4L EBUS FNAA. Lymph Node, Lower Paratracheal, Left, Station 4LReceived 23 mls in cytorich red; prepared 2 cytospins, cell block (A2) (cell block placed in formalin at 1050 on 01/03/29)Performed. The interpretation of this case included the use of immunohistochemistry or special stains.Control Slides Examined: In-house known positive controls were evaluated along with the test tissue. These control slides run alongside of the patients sample show appropriate staining. Internal positive and negative controls when available are evaluated Immunohistochemistry technical testing was performed at [facility], Pathology Laboratory where it was developed and its performance characteristics were determined. It has not been cleared or approved by the U.S. Food and Drug Administration. The FDA has determined that such clearance or approval is not necessary. The test is used for clinical purposes. It should not be regarded as investigational or for research. This laboratory is certified under the Clinical Laboratory Improvement Amendments of 1988 (CLIA-88) as qualified to perform high complexity clinical laboratory testing.[facility], Department of Pathology, [address] [place] [address], [facility], [address] [place] [address], [facility], [facility], [address] [place] [address], FINE NEEDLE ASPIRATE BY EBUS 2024-01-10 18:53:34 Medical Cytology Report Case: [id number] Authorizing Provider: Tiara Montalvo MD Collected: 01/08/2024 10:04 AM Ordering Location: [facility] Received: 01/09/2024 08:59 AM Pathologist: Hans Garcia MD Specimen: Lymph Node, Lower Paratracheal, Right, Station 4R LYMPH NODE, RIGHT LOWER PARATRACHEAL STATION 4R, EBUS FNA BY CLINICIAN (CYTOSPINS AND CELL BLOCK OF ASPIRATE): - POSITIVE FOR MALIGNANCY - RARE CLUSTERS OF METASTATIC ADENOCARCINOMA. Signing Pathologist Direct Phone Line: [phone] y signed by Hans Garcia MD on 01/10/2024 at 6:53 PMTissue is insufficient for molecular testing.Please see cases [id number] and [id number] through [id number], [id number] year old gentleman with newly diagnosed left lung adenocarcinoma. He was hospitalized in Nov to OSH with large left pleural effusion, which was noted to be malignant. He underwent TPC placement and has been draining approx 1L every other day. He underwent PET CT which showed a large left pleural effusion, FDG avid left lateral chest wall soft tissue and mediastinal adenopathy. LYMPH NODE, LOWER PARATRACHEAL, RIGHT, STATION 4R EBUS FNAA. Lymph Node, Lower Paratracheal, Right, Station 4RReceived 25 mls in cytorich red; prepared 2 cytospins, cell block (A2) (cell block placed in formalin at 1045 on 01/09/24)Performed. [facility], Department of Pathology, [address] [place] [address], [facility], [facility] Path[facility], [address] [place] [address], [facility], [facility] of Path[facility], [address] [place] [address], FINE NEEDLE ASPIRATE BY EBUS 2024-01-10 18:49:06 Medical Cytology Report Case: [id number] Authorizing Provider: Tiara Montalvo MD Collected: 01/08/2024 09:59 AM Ordering Location: [facility] Received: 01/09/2024 08:56 AM Pathologist: Hans Garcia MD Specimen: Lymph Node, Interlobar, Left, Station 11L LYMPH NODE, LEFT INTERLOBAR STATION 11L, EBUS FNA BY CLINICIAN (CYTOSPINS AND CELL BLOCK OF ASPIRATE): - POSITIVE FOR MALIGNANCY - METASTATIC LUNG ADENOCARCINOMA. Signing Pathologist Direct Phone Line: [phone] y signed by Hans Garcia MD on 01/10/2024 at 6:49 PMTumor cellularity is adequate for molecular testing.Tumor cells are positive for Roderick-EP4, TTF-1 and Napsin A (patchy). This immunoprofile supports the above diagnosis.Please see cases [id number] and [id number] through [id number], [id number], [id number], [phone] x 89 year old gentleman with newly diagnosed left lung adenocarcinoma. He was hospitalized in Nov to OSH with large left pleural effusion, which was noted to be malignant. He underwent TPC placement and has been draining approx 1L every other day. He underwent PET CT which showed a large left pleural effusion, FDG avid left lateral chest wall soft tissue and mediastinal adenopathy. LYMPH NODE, INTERLOBAR, LEFT, STATION 11L EBUS FNA A. Lymph Node, Interlobar, Left, Station 11LReceived 25 mls in cytorich red; prepared 2 cytospins, cell block (A2) (cell block placed in formalin at 1040 on 01/09/24)Performed. The interpretation of this case included the use of immunohistochemistry or special stains.Control Slides Examined: In-house known positive controls were evaluated along with the test tissue. These control slides run alongside of the patients sample show appropriate staining. Internal positive and negative controls when available are evaluated Immunohistochemistry technical testing was performed at [facility], Pathology Laboratory where it was developed and its performance characteristics were determined. It has not been cleared or approved by the U.S. Food and Drug Administration. The FDA has determined that such clearance or approval is not necessary. The test is used for clinical purposes. It should not be regarded as investigational or for research. This laboratory is certified under the Clinical Laboratory Improvement Amendments of 1988 (CLIA-88) as qualified to perform high complexity clinical laboratory testing.[facility], Department of Pathology, [address] [place] [address], [facility], [facility] of Pathology, [address] [place] [address], [facility], [facility] of Pathology, [address] [place] [address], FINE NEEDLE ASPIRATION BY CLINICIAN 2024-01-10 18:47:45 Medical Cytology Report Case: [id number] Authorizing Provider: Tiara Montalvo MD Collected: 01/08/2024 09:51 AM Ordering Location: [facility] Received: 01/09/2024 08:50 AM Pathologist: Hans Garcia MD Specimen: Lung, Left, FNA LUNG MASS, LEFT, EBUS FNA BY CLINICIAN (CYTOSPINS AND CELL BLOCK OF ASPIRATE): - ATYPICAL CELLS PRESENT. - RARE MARKEDLY ATYPICAL CELLS, SUSPICIOUS FOR ADENOCARCINOMA. Signing Pathologist Direct Phone Line: [phone] y signed by Hans Garcia MD on 01/10/2024 at 6:47 PMAtypical cells are quantitatively insufficient for further characterization. Please see cases [id number] and [id number] through [id number], [id number] year old gentleman with newly diagnosed left lung adenocarcinoma. He was hospitalized in Nov to OSH with large left pleural effusion, which was noted to be malignant. He underwent TPC placement and has been draining approx 1L every other day. He underwent PET CT which showed a large left pleural effusion, FDG avid left lateral chest wall soft tissue and mediastinal adenopathy. LEFT LUNG MASS EBUS FNAA. Lung, LeftReceived 30 mls in cytorich red; prepared 2 cytospins, cell block (A2) (cell block placed in formalin at 1035 on 01/09/24)Performed. [facility], Department of Pathology, [address] [place] [address], [facility], [facility] of Pathology, [address] [place] [address], [facility], [facility] of Pathology, [address] [place] [address], FINE NEEDLE ASPIRATE BY EBUS 2024-01-10 17:40:37 Medical Cytology Report Case: [id number] Authorizing Provider: Tiara Montalvo MD Collected: 01/08/2024 09:45 AM Ordering Location: [facility] Received: 01/09/2024 08:47 AM Pathologist: Hans Garcia MD Specimen: Lymph Node, Subcarinal, Station 7 LYMPH NODE, SUBCARINAL STATION 7, EBUS FNA BY CLINICIAN (CYTOSPINS AND CELL BLOCK OF ASPIRATE): - NEGATIVE FOR MALIGNANCY - FRAGMENTS OF BENIGN LYMPH NODE TISSUE. Signing Pathologist Direct Phone Line: [phone] y signed by Hans Garcia MD on 01/10/2024 at 5:40 PMPlease see cases [id number] and [id number] through [id number], [id number] year old gentleman with newly diagnosed left lung adenocarcinoma. He was hospitalized in Nov to OSH with large left pleural effusion, which was noted to be malignant. He underwent TPC placement and has been draining approx 1L every other day. He underwent PET CT which showed a large left pleural effusion, FDG avid left lateral chest wall soft tissue and mediastinal adenopathy. LYMPH NODE, SUBCARINAL, STATION 7 EBUS FNAA. Lymph Node, Subcarinal, Station 7Received 23 mls in cytorich red; prepared 2 cytospins, cell block (A2) (cell block placed in formalin at 1030 on 01/09/24)Performed. [facility], Department of Pathology, [address] [place] [address], [facility], [facility] of [facility], [address] [place] [address], [facility], Department of Pathology, [address] [place] [address], EBUS FNA [id number] 10:00:42* Test Item Value Reference Range Interpretation Comme nts CYTOLOGY RESULT POINTER (BEAKER) (test code = 2629) See Separate Report EBUS FNA [id number] 10:00:42* Test Item Value Reference Range Interpretation Comme nts CYTOLOGY RESULT POINTER (BEAKER) (test code = 2629) See Separate Report FINE NEEDLE ASPIRATE (FNA) [id number] 10:00:41* Test Item Value Reference Range Interpretation Comme nts CYTOLOGY RESULT POINTER (BEAKER) (test code = 2629) See Separate Report EBUS FNA [id number] 10:00:41* Test Item Value Reference Range Interpretation Comme nts CYTOLOGY RESULT POINTER (BEAKER) (test code = 2629) See Separate Report BASIC METABOLIC [id number] 08:54:00* Test Item Value Reference Range Interpretation Comme nts SODIUM (BEAKER) (test code = 381) 131 meq/L 136-145 L POTASSIUM (BEAKER) (test code = 379) 4.3 meq/L 3.5-5.1 Specimen slightl y hemolyzed CHLORIDE (BEAKER) (test code = 382) 94 meq/L 98-107 L CO2 (BEAKER) (test code = 355) 22 meq/L 22-29 BLOOD UREA NITROGEN (BEAKER) (test code = 354) 7 mg/dL 8-26 L CREATININE (BEAKER) (test code = 358) 0.73 mg/dL 0.72-1.25 Specimen slightl y hemolyzed GLUCOSE RANDOM (BEAKER) (test code = 652) 87 mg/dL 70-105 CALCIUM (BEAKER) (test code = 697) 9.3 mg/dL 8.4-10.2 EGFR (BEAKER) (test code = 1092) 99 mL/min/1.73 sq m Interpretation of eG FR values Stage Description Result G1 Normal or high >=90 G2 Mildly decreased 60-89 G3a Mildly to moderately 45-59 G3b Moderately to severely 30-44 G4 Severly decreased 15-29 G5 Kidney failure <15Reported eGFR is based on the CKD-EPI 2020 equation that does not use a race coefficientEstimated GFR is not as accurate as Creatinine Clearance in predicting glomerular filtration rate. Estimated GFR is not applicable for dialysis patients
[2024-02-11] MEDS ORDERED: FAMOTIDINE 20 MG/2 ML VIAL IV ONE (10:21)
[2024-02-11] MEDS ORDERED: ASPIRIN 81 MG CHEWABLE TABLET ONE (10:21)
[2024-02-11] MEDS ORDERED: NA CHLORIDE 0.9% 1,000 ML ONE (10:21)
[2024-02-11 10:47] LABS: Absolute Basophils 0.2 K/uL (0-0.5); Absolute Eosinophils 0.1 K/uL (0-0.5); Absolute Lymphocytes (CBC) 3.2 K/uL (0.7-4.9); Absolute Monocytes 2.6 K/uL (0.1-1.3); Absolute Neutrophil 36.8 K/uL (1.8-8.0); Basophils % 0.6 % (0-1.3); Eosinophils % 0.3 % (0-4.4); Hematocrit 34.8 % (39.6-49.0); Hemoglobin 11.4 g/dL (13.6-17.9); Lymphocytes % 7.5 % (15.3-44.8); MCH 29.7 pg (27.0-35.0); MCHC 32.9 g/dL (32.0-36.0); MCV 90.1 fL (80-100); MPV 7.1 fL (7.6-11.3); Monocytes % 6.1 % (3.3-12.3); Neutrophils % 85.5 % (41.7-73.7); Platelets 152 thou/uL (152-406); RBC Red Blood Cell Count 3.86 M/uL (4.33-5.43); Red Cell Distribution Width 13.9 % (12.1-15.2)
[2024-02-11 10:51] LABS: PT Prothrombin Time 14.5 SECONDS (9.4-12.5); Protime INR 1.3
[2024-02-11 11:06] LABS: Albumin 2.8 g/dL (3.4-5.0); Albumin/Globulin Ratio 0.8 (1.1-1.8); Anion Gap 11.3 mEq/L (5.0-15.0); Bilirubin Direct 0.2 mg/dL (0-0.2); Bilirubin Indirect, Calculated 0.3 mg/dL (0.2-0.8); Bilirubin Total 0.5 mg/dL (0.2-1.0); Globulin 3.6 g/dL (2.3-3.5); Magnesium 2.3 mg/dL (1.6-2.4); Potassium 5.3 mEq/L (3.5-5.1); Protein, Total 6.4 g/dL (6.4-8.2); Troponin High Sensitivity 21.1 pg/mL (<58.9)
[2024-02-11 11:16] LABS: Band Neutrophils 15 % (0-1); Blood Morphology Comment NOTED (NOT SEEN); Differential Total Cells Count 100; Dohle Bodies PRESENT; Lymphocytes 7 % (15-42); Metamyelocytes 3 % (0-0); Monocytes 3 % (0-10); Platelet Estimate ADEQ; Polychromasia 1+; Segmented Neutrophils 72 % (40-80)
--- NOTE | 2024-02-11 11:23 | ER ---
Nurse's Notes [facility] Name: Pastor Salter Age: 68 yrs Sex: Male : 1955 Arrival Date: 02/11/2024 Time: 10:05 Bed 4 Private MD: Diagnosis: Dyspnea;Malignant pleural effusion;Elevated white blood cell count-ON CHEMO;Hypo-osmolality and hyponatremia;Malignant neoplasm of lower lobe, left bronchus or lung;Bandemia;Hyperkalemia Presentation: 02/10 10:14 Chief complaint: Patient states: Chest tightness since this morning. Coronavirus jl7 screen: At this time, the client does not indicate any symptoms associated with coronavirus-19. Ebola Screen: No symptoms or risks identified at this time. Initial Sepsis Screen: Does the patient meet any 2 criteria? No. Patient's initial sepsis screen is negative. Does the patient have a suspected source of infection? No. Patient's initial sepsis screen is negative. Risk Assessment: Do you want to hurt yourself or someone else? Patient reports no desire to harm self or others. Onset of symptoms was February 11, 2024. Care prior to arrival: None. 10:14 Method Of Arrival: Ambulatory jl7 10:14 Acuity: MARYAM 2 jl7 Triage Assessment: 10:05 General: Appears in no apparent distress. uncomfortable, Behavior is calm, cooperative, jl7 appropriate for age. Pain: Complains of pain in chest Pain currently is 8 out of 10 on a pain scale. Quality of pain is described as "tightness". Neuro: Level of Consciousness is awake, alert, obeys commands, Oriented to person, place, time, situation. Cardiovascular: Patient's skin is warm and dry. Respiratory: Airway is patent Respiratory effort is even, unlabored, Respiratory pattern is regular, symmetrical. Derm: Skin is pink, warm \\T\\ dry. Historical: - Allergies: 10:15 PENICILLINS; jl7 - PMHx: 10:15 Chronic obstructive lung disease; Hypercholesterolemia; Hypertensive disorder; jl7 - Immunization history:: Adult Immunizations unknown. - Infectious Disease History:: Denies. - Social history:: Smoking status: Patient/guardian denies using tobacco, Smoking status: Patient/guardian denies using tobacco, Stopped _ months ago 2. - Family history:: not pertinent. Screenin:05 [facility] ED Fall Risk Assessment (Adult) History of falling in the last 3 months, jl7 including since admission No falls in past 3 months (0 pts) Confusion or Disorientation No (0 pts) Intoxicated or Sedated No (0 pts) Impaired Gait No (0 pts) Mobility Assist Device Used No (0 pt) Altered Elimination No (0 pt) Score/Fall Risk Level 0 - 2 = Low Risk Oriented to surroundings, Maintained a safe environment. Abuse screen: Denies threats or abuse. Denies injuries from another. Nutritional screening: No deficits noted. Tuberculosis screening: No symptoms or risk factors identified. Assessment: 10:05 General: See triage. jl7 11:05 Reassessment: Patient appears in no apparent distress at this time. No changes from jl7 previously documented assessment. Patient and/or family updated on plan of care and expected duration. Pain level reassessed. Patient is alert, oriented x 3, equal unlabored respirations, skin warm/dry/pink. 12:04 Reassessment: pt c/o pain to left lung, ERD notified, VO for 4 mg Zofran and 4 mg jl7 morphine IVP, pt medicated as ordered. Vital Signs: 10:14 BP 142 / 98; Pulse 80; Resp 17; Temp 97.9; Pulse Ox 100% ; Weight 58.97 kg; Height 5 jl7 ft. 8 in. ; Pain 8/10; 10:30 BP 142 / 94; Pulse 76; Resp 15; Pulse Ox 100% ; jl7 12:04 BP 144 / 97; Pulse 97; Resp 20; Pulse Ox 100% ; jl7 10:14 Body Mass Index 19.77 (58.97 kg, 172.72 cm) jl7 10:14 Pain Scale: Adult jl7 ED Course: 10:05 Patient arrived in ED. im 10:05 EKG completed in triage. Results shown to MD. jl7 10:05 Client placed on continuous cardiac and pulse oximetry monitoring. NIBP monitoring jl7 applied. 10:05 Patient has correct armband on for positive identification. Provided Education on: use jl7 of call beebe. 10:05 Patient admitted, IV remains in place. intact, No redness/swelling at site. jl7 10:08 Javi Mccullough MD is Attending Physician. [facility] 10:14 Nikko Kraft RN is Primary Nurse. jl7 10:15 Triage completed. jl7 10:15 Arm band placed on right wrist. jl7 10:40 Initial lab(s) drawn, by me, sent to lab. Inserted saline lock: 20 gauge in right jl7 forearm, using aseptic technique. Blood collected. Flushed with 10 mL NS. 10:40 Patient maintains SpO2 saturation greater than 95% on room air. jl7 11:10 CT Chest For PE Angio In Process Unspecified. EDMS 11:21 Rios Rodriguez is Hospitalizing Provider. [facility] 11:22 XRAY Chest (1 view) In Process Unspecified. EDMS 11:51 Warm blanket given. Verbal reassurance given. am7 Administered Medications: 10:20 CANCELLED (Duplicate Order): ns 0.9% 1000 ml IV at 125 ml/hr continuous jose 10:41 Drug: NS 0.9% IV 1000 ml IV at 125 ml/hr continuous Route: IV; Rate: 125 ml/hr; Site: jl7 right forearm; 11:59 Follow up: IV Status: Infusion continued upon admission jl7 10:41 Drug: Famotidine IVP 20 mg IVP once; dilute with 10 mL 0.9% NaCl; give over 2 minutes jl7 Route: IVP; Site: right forearm; 11:59 Follow up: Response: No adverse reaction jl7 10:41 Drug: Aspirin PO Chewable Tablet 81 mg PO once Route: PO; jl7 11:59 Follow up: Response: No adverse reaction jl7 10:41 Drug: NS 0.9% IV 500 ml 500 ml IV at 1 bolus once; to be given as a bolus over 30 jl7 minutes Volume: 500 ml; Route: IV; Rate: 1 bolus; Site: right forearm; 11:30 Follow up: Response: No adverse reaction; IV Status: Completed infusion; IV Intake: jl7 500ml 11:53 Drug: morphine IVP or IV 4 mg IVP once over 4 mins Route: IVP; Infused Over: 4 mins; jl7 Site: right forearm; 12:30 Follow up: Response: No adverse reaction; Pain is decreased jl7 11:59 Drug: Ondansetron IVP 4 mg IVP once; over 2 minutes Route: IVP; Site: right forearm; jl7 12:30 Follow up: Response: No adverse reaction jl Medication: 12:05 VIS not applicable for this client. jl7 Intake: 11:30 IV: 500ml; Total: 500ml. jl7 Outcome: 11:22 Decision to Hospitalize by Provider. jose 14:10 Patient left the ED. bp Signatures: Dispatcher [employer] Javi Alvarez MD MD cha Leal, Jahala, RN RN jl7 Saul Meyers RN RN Mimi Wagner Abigail am7
--- NOTE | 2024-02-11 11:23 | EDPHYS ---
Physician Documentation [facility] Name: Pastor Salter Age: 68 yrs Sex: Male : 1955 Arrival Date: 02/11/2024 Time: 10:05 Bed 4 Private MD: ED Physician Javi Mccullough HPI: 02/10 11:12 This 68 yrs old Male presents to ER via Ambulatory with complaints of Chest jose Pain. 11:12 The patient or guardian reports chest pain that is located primarily in the substernal jose area, anterior chest wall, left. Onset: this morning, today. The pain does not radiate. Associated signs and symptoms: Pertinent positives: shortness of breath. The chest pain is described as a pressure, squeezing. Modifying factors: The symptoms are alleviated by nothing. the symptoms are aggravated by breathing, cough, deep breath. Severity of pain: At its worst the pain was moderate in the emergency department the pain is unchanged. The patient has experienced similar episodes in the past, multiple times. Historical: - Allergies: 10:15 PENICILLINS; jl7 - PMHx: 10:15 Chronic obstructive lung disease; Hypercholesterolemia; Hypertensive disorder; jl7 - Immunization history:: Adult Immunizations unknown. - Infectious Disease History:: Denies. - Social history:: Smoking status: Patient/guardian denies using tobacco, Smoking status: Patient/guardian denies using tobacco, Stopped _ months ago 2. - Family history:: not pertinent. ROS: 11:12 Constitutional: Negative for fever, chills, and weight loss, Eyes: Negative for injury, jose pain, redness, and discharge, ENT: Negative for injury, pain, and discharge, Neck: Negative for injury, pain, and swelling, Cardiovascular: Negative for chest pain, palpitations, and edema, Abdomen/GI: Negative for abdominal pain, nausea, vomiting, diarrhea, and constipation, Back: Negative for injury and pain, : Negative for injury, bleeding, discharge, and swelling, MS/Extremity: Negative for injury and deformity, Skin: Negative for injury, rash, and discoloration, Neuro: Negative for headache, weakness, numbness, tingling, and seizure, Psych: Negative for depression, anxiety, suicide ideation, homicidal ideation, and hallucinations, Allergy/Immunology: Negative for hives, rash, and allergies, Endocrine: Negative for neck swelling, polydipsia, polyuria, polyphagia, and marked weight changes, 11:12 Respiratory: Positive for cough, shortness of breath, at rest. Exam: 11:12 Constitutional: This is a well developed, well nourished patient who is awake, alert, jose and in no acute distress. Head/Face: Normocephalic, atraumatic. Eyes: Pupils equal round and reactive to light, extra-ocular motions intact. Lids and lashes normal. Conjunctiva and sclera are non-icteric and not injected. Cornea within normal limits. Periorbital areas with no swelling, redness, or edema. ENT: Nares patent. No nasal discharge, no septal abnormalities noted. Tympanic membranes are normal and external auditory canals are clear. Oropharynx with no redness, swelling, or masses, exudates, or evidence of obstruction, uvula midline. Mucous membranes moist. Neck: Trachea midline, no thyromegaly or masses palpated, and no cervical lymphadenopathy. Supple, full range of motion without nuchal rigidity, or vertebral point tenderness. No Meningismus. Chest/axilla: Normal chest wall appearance and motion. Nontender with no deformity. No lesions are appreciated. Abdomen/GI: Soft, non-tender, with normal bowel sounds. No distension or tympany. No guarding or rebound. No evidence of tenderness throughout. Back: No spinal tenderness. No costovertebral tenderness. Full range of motion. Male : Normal genitalia with no discharge or lesions. Skin: Warm, dry with normal turgor. Normal color with no rashes, no lesions, and no evidence of cellulitis. MS/ Extremity: Pulses equal, no cyanosis. Neurovascular intact. Full, normal range of motion., bilateral aka Neuro: Awake and alert, GCS 15, oriented to person, place, time, and situation. Cranial nerves II-XII grossly intact. Motor strength 5/5 in all extremities. Sensory grossly intact. Cerebellar exam normal. Normal gait. Psych: Awake, alert, with orientation to person, place and time. Behavior, mood, and affect are within normal limits. 11:12 Cardiovascular: Rate: normal, Rhythm: regular, Pulses: Pulses are 4+ in bilateral radial, brachial, femoral, popliteal, posterior tibial and and dorsalis pedis arteries.. Heart sounds: normal, Edema: is not appreciated, JVD: is not appreciated, Vital Signs: 10:14 BP 142 / 98; Pulse 80; Resp 17; Temp 97.9; Pulse Ox 100% ; Weight 58.97 kg; Height 5 7 ft. 8 in. ; Pain 8/10; 10:30 BP 142 / 94; Pulse 76; Resp 15; Pulse Ox 100% ; jl7 12:04 BP 144 / 97; Pulse 97; Resp 20; Pulse Ox 100% ; jl7 10:14 Body Mass Index 19.77 (58.97 kg, 172.72 cm) [facility] 10:14 Pain Scale: Adult 7 MDM: 10:08 Medical Screening Exam initiated jose 11:14 Differential diagnosis: abnormal EKG, acute myocardial infarction, acute pericarditis, jose anxiety, coronary artery disease chest wall pain, congestive heart failure costochondritis, esophagitis, gastritis, herpes zoster, hiatal hernia, peptic ulcer disease, pericarditis, pleurisy, pneumonia, pneumothorax, pulmonary embolus, stable angina, thoracic aortic disection, unstable angina. HEART Score: History: Slightly Suspicious (0), ECG: Normal (0), Age: > or = 65 years (2), Risk Factors: > or = 3 Risk factors for atherosclerotic disease (2), [Hypercholesterolemia] [Hypertension] [+ Family HX] Troponin: < or = 1 x Normal Limit (0). The patient was given aspirin in the Emergency Department. FRANCISCA Risk Score: 1 - patient's age is greater or equal to 65 years, 1 - Three or more CAD risk factors, 1- Known CAD, 1 - Recent [<24hrs] Severe Angina, TOTAL SCORE = 4. Data reviewed: vital signs, nurses notes, lab test result(s), EKG, radiologic studies, CT scan, plain films. Consideration of Admission/Observation Escalation of care including admission/observation considered. I considered the following discharge prescriptions or medication management in the emergency department Medications were administered in the Emergency Department. See MAR. Independent interpretation of the following test(s) in the Emergency Department EKG: See my EKG interpretation above. Test considered but Not performed: Ultrasound NO 2 D ECHO. 02/10 10:13 Order name: Basic Metabolic Panel; Complete Time: 11:09 jose 02/10 10:13 Order name: CBC with Diff; Complete Time: 11:27 [facility] 02/10 10:13 Order name: LFT's; Complete Time: 11: [facility] 02/10 10:13 Order name: Magnesium; Complete Time: 11: [facility] 02/10 10:13 Order name: NT PRO-BNP; Complete Time: 11: [facility] 02/10 10:13 Order name: PT-INR; Complete Time: 11: [facility] 02/10 10:13 Order name: Troponin HS; Complete Time: 11: [facility] 02/10 10:13 Order name: Lipase; Complete Time: 11: [facility] 02/10 10:51 Order name: Manual Differential; Complete Time: 11:27 EDMS 02/10 11:10 Order name: Urine Sodium Random [facility] 02/10 11:10 Order name: Osmolality, Serum [facility] 02/10 11:10 Order name: Urine Osmolality [facility] 02/10 12:31 Order name: Basic Metabolic Panel EDMS 02/10 12:31 Order name: Magnesium EDMS 02/10 12:31 Order name: Phosphorus EDMS 02/10 12:31 Order name: Urinalysis w/ reflexes EDMS 02/10 12:31 Order name: Basic Metabolic Panel EDMS 02/10 12:31 Order name: Basic Metabolic Panel EDMS 02/10 12:31 Order name: Basic Metabolic Panel EDMS 02/10 12:31 Order name: Basic Metabolic Panel EDMS 02/10 12:31 Order name: Basic Metabolic Panel EDMS 02/10 12:31 Order name: Basic Metabolic Panel EDMS 02/10 12:31 Order name: CBC with Automated Diff EDMS 02/10 12:31 Order name: CBC with Automated Diff EDMS 02/10 12:31 Order name: CBC with Automated Diff EDMS 02/10 12:31 Order name: CBC with Automated Diff EDMS 02/10 12:31 Order name: CBC with Automated Diff EDMS 02/10 12:31 Order name: CBC with Automated Diff EDMS 02/10 12:31 Order name: Magnesium EDMS 02/10 12:31 Order name: Magnesium EDMS 02/10 12:31 Order name: Magnesium EDMS 02/10 12:31 Order name: Magnesium EDMS 02/10 12:31 Order name: Magnesium EDMS 02/10 12:31 Order name: Magnesium EDMS 02/10 12:31 Order name: Phosphorus EDMS 02/10 12:31 Order name: Phosphorus EDMS 02/10 12:31 Order name: Phosphorus EDMS 02/10 12:31 Order name: Phosphorus EDMS 02/10 12:31 Order name: Phosphorus EDAZ 02/10 12:31 Order name: Phosphorus EDAZ 02/10 10:13 Order name: XRAY Chest (1 view); Complete Time: 13:56 [facility] 02/10 10:27 Order name: CT Chest For PE Angio; Complete Time: 11:27 [facility] 02/10 12:31 Order name: Chest Single View EDAZ 02/10 10:13 Order name: EKG; Complete Time: 10:14 [facility] 02/10 12:31 Order name: CONS Physician Consult [facility] 02/10 10:13 Order name: Cardiac monitoring; Complete Time: 10:18 [facility] 02/10 10:13 Order name: EKG - Nurse/Tech; Complete Time: 10:18 [facility] 02/10 10:13 Order name: IV Saline Lock; Complete Time: 10:41 [facility] 02/10 10:13 Order name: Labs collected and sent; Complete Time: 10:41 [facility] 02/10 10:13 Order name: O2 Per Protocol; Complete Time: 10:19 [facility] 02/10 10:13 Order name: O2 Sat Monitoring; Complete Time: 10:19 [facility] Administered Medications: 10:20 CANCELLED (Duplicate Order): ns 0.9% 1000 ml IV at 125 ml/hr continuous [facility] 10:41 Drug: NS 0.9% IV 1000 ml IV at 125 ml/hr continuous Route: IV; Rate: 125 ml/hr; Site: jl right forearm; 11:59 Follow up: IV Status: Infusion continued upon admission jl7 10:41 Drug: Famotidine IVP 20 mg IVP once; dilute with 10 mL 0.9% NaCl; give over 2 minutes jl7 Route: IVP; Site: right forearm; 11:59 Follow up: Response: No adverse reaction jl7 10:41 Drug: Aspirin PO Chewable Tablet 81 mg PO once Route: PO; jl7 11:59 Follow up: Response: No adverse reaction jl7 10:41 Drug: NS 0.9% IV 500 ml 500 ml IV at 1 bolus once; to be given as a bolus over 30 jl7 minutes Volume: 500 ml; Route: IV; Rate: 1 bolus; Site: right forearm; 11:30 Follow up: Response: No adverse reaction; IV Status: Completed infusion; IV Intake: jl7 500ml 11:53 Drug: morphine IVP or IV 4 mg IVP once over 4 mins Route: IVP; Infused Over: 4 mins; jl7 Site: right forearm; 12:30 Follow up: Response: No adverse reaction; Pain is decreased jl7 11:59 Drug: Ondansetron IVP 4 mg IVP once; over 2 minutes Route: IVP; Site: right forearm; jl7 12:30 Follow up: Response: No adverse reaction jl7 Disposition Summary: 02/11/24 11:22 Hospitalization Ordered Notes: Hospitalization Status: Inpatient Admission jose Provider: Rios Rodriguez cha Location: Telemetry/MedSurg (Inpatient) jose Condition: Fair jose Problem: new jose Symptoms: have improved jose Bed/Room Type: Standard [facility] Room Assignment: 213(02/11/24 12:46) sp Diagnosis - Dyspnea jose - Malignant pleural effusion jose - Elevated white blood cell count - ON CHEMO jose - Hypo-osmolality and hyponatremia jose - Malignant neoplasm of lower lobe, left bronchus or lung jose - Bandemia jose - Hyperkalemia jose Forms: - Medication Reconciliation Form jose - SBAR form jose - Leadership Thank You Letter jose Signatures: Dispatcher [employer] EDJavi Plata MD MD cha Pinkerton, Shawna sp Leal, Jahala, RN RN jl7 Corrections: (The following items were deleted from the chart) 10:20 10:13 NS 0.9% IV 1000 ml IV at 125 ml/hr continuous ordered. jose jose 10:20 10:19 NS 0.9% IV 1000 ml IV at 125 ml/hr continuous ordered. [address] 12:46 11:22 jose sp
--- NOTE | 2024-02-11 11:24 | RAD REPORT ---
EXAMINATION: CTA CHEST PE CLINICAL INDICATION: Chest pain;Dyspnea TECHNIQUE: This examination was performed according to an angiographic protocol with 3D post-processi ng. This involves 3D reconstructions, MIPs, volume rendered images and/or shaded surface rendering. One or more of the following dose reduction techniques were used: Automated exposure control, adjustm ent of the mA and/or kV according to patient size, and/or iterative reconstruction. Unless otherwise specified, incidental findings do not require dedicated imaging follow-up. COMPARISON: 11/16/2023 FINDINGS: PULMONARY ARTERIES: Normal caliber. No evidence of pulmonary emboli to the subsegmental level. THORACIC AORTA: Normal caliber and configuration. LUNGS: Significant atelectasis is seen in the left lower lung. The right lung is emphysematous. PLEURA: There is a large left pleural effusion seen with a pleural catheter in place. Catheter tip is positioned posteriorly and inferiorly in the left lateral space. Trace right pleural effusion. MEDIASTINUM AND LYMPH NODES: No mediastinal mass or fluid collection. Normal size mediastinal, hilar, and axillary lymph nodes. OSSEOUS STRUCTURES AND CHEST WALL: No fracture seen. Areas of sclerosis seen in the osseous structure s compatible with metastatic disease. UPPER ABDOMEN: No significant abnormalities. IMPRESSION: No evidence of pulmonary emboli to the subsegmental level. Large left pleural effusion with catheter in place. Sclerotic bony lesions compatible with metastatic disease.
--- NOTE | 2024-02-11 11:29 | RAD REPORT ---
EXAMINATION: ONE VIEW CHEST XR CLINICAL INDICATION: Chest pain;Dyspnea TECHNIQUE: Frontal chest projection is submitted. Examination is limited by patient positioning and t echnique. COMPARISON: 01/19/2024 FINDINGS: Large left pleural effusion is noted. The right lung appears grossly clear. Right-sided venous cathet ers tip in SVC. Left-sided smallbore chest tube noted.
[2024-02-11] MEDS ORDERED: MORPHINE 4 MG/ML SYR ONE (11:51)
[2024-02-11] MEDS ORDERED: ONDANSETRON 4 MG/2 ML VIAL ONE (11:51)
[2024-02-11] MEDS ORDERED: HYDROCODONE/APAP 7.5/325 MG TAB PO PRN (12:21)
[2024-02-11] MEDS ORDERED: ACETAMINOPHEN 325 MG TABLET PO PRN (12:21)
--- NOTE | 2024-02-11 12:33 | P.HP ---
Certification for Inpatient Patient admitted to: Inpatient With expected LOS: >2 Midnights Patient will require the following post-hospital care: None Practitioner: I am a practitioner with admitting privileges, knowledge of patient current condition, hospital course, and medical plan of care. 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 He has a complicated history of lung cancer with chronic pleural effusions requiring weekly draining. Dr. Blackwell placed the catheter to the left lung space in November. While in the ED, Plurex drain applied with 750 ml out then stopped d/t increased pain. Laboratory evaluation significant for WBC 43, sodium 119, potassium 5.3, alk phos 743. CTA Thorax reports "No evidence of pulmonary emboli to the subsegmental level. Large left pleural effusion with catheter in place. Sclerotic bony lesions compatible with metastatic disease." CXR reports "Large left pleural effusion is noted. The right lung appears grossly clear. Right-sided venous catheters tip in SVC. Left-sided smallbore chest tube noted" Pastor will be admitted to hospitalist service for further treatment of Left pleural effusion, Hyponatremia. Allergies Penicillins Allergy (Verified 01/19/24 08:58) Hives/Rash Home Medications: Ezetimibe [Zetia*] 10 mg PO DAILY 11/16/23 Nebivolol HCl 2.5 mg PO DAILY 11/16/23 Olmesartan Medoxomil 20 mg PO BEDTIME 11/16/23 terbinafine HCL [Terbinafine HCl] 250 mg PO DAILY 11/16/23 traMADol HCL [Ultram*] 50 mg PO Q6H PRN 4 Days #15 tab 11/17/23 Doxepin HCl [Sinequan*] 1 tab PO PRN PRN 01/18/24 Gabapentin [Neurontin*] 100 mg PO TID 01/18/24 Folic Acid 0.8 mg PO ONCE 02/11/24 Folic Acid 1 mg PO ONCE 02/11/24 Gabapentin 300 mg PO TID 02/11/24 Hydrocodone Bit/Acetaminophen [Hydrocodon-Acetaminoph 7.5-325] 7.5 - 325 mg PO PRN PRN MDD 4 02/11/24 Rosuvastatin [Crestor*] 10 mg PO ONCE 02/11/24 - Past Medical/Surgical History Diabetic: No -: Hyperlipidemia -: Hypertension -: COPD -: Malignant lung cancer -: Pleurx catheter - Social History Smoking Status: Current some day smoker Alcohol use: Yes CD- Drugs: Yes Review of Systems Respiratory: Shortness of Breath Cardiovascular: Chest Pain Physical Examination - Physical Exam General: Alert, In no apparent distress, Oriented x3, Other (uncomfortable) HEENT: Atraumatic, Normocephalic, PERRLA Neck: Supple, 2+ carotid pulse no bruit Respiratory: Diminished (left), Other (pleurx catheter in place ) Cardiovascular: No edema, Regular rate/rhythm Capillary refill: <2 Seconds Gastrointestinal: Soft and benign, Non-distended, No tenderness Musculoskeletal: No clubbing Integumentary: No rashes Neurological: Normal speech, Normal tone - Studies Laboratory Data (last 24 hrs) 02/11/24 02/11/24 02/11/24 10:39 10:39 10:39 WBC 43.10 H Hgb 11.4 L Hct 34.8 L Plt Count 152 PT 14.5 H INR 1.30 Sodium 119 L* Potassium 5.3 H BUN 6 L Creatinine 0.46 L Glucose 95 Magnesium 2.3 Total Bilirubin 0.5 AST 31 ALT 30 Alkaline Phosphatase 746 H Lipase 69 Assessment and Plan - Plan Assessment and Plan Acute on Chronic Large Left Pleural effusion 2/2 Lung cancer Hx COPD/asthma Leukocytosis -WBC 43.10 -drainage catheter in place, Pleurx draining 750 ml bloody drainage -IPH drains Left pleural space with Pleurx weekly -pain control -Levaquin IV -Serial chest x-rays to monitor drainage -Continue home medications Hyponatremia suspect SIADH -Na 119, continue to monitor BMP at 1900 -ED gave 1 L NS -nephrology consult -Fluid restriction with gentle IV fluids -Serum and urine osmolality pending Hypokalemia -K 5.3 -monitor BMP at 1900 HTN Hypercholesterolemia -Continue home medication DVT PPx SCDs Full code LOS 2 days Discharge Plan: Home Plan to discharge in: 48 Hours - Advance Directives Does patient have a Living Will: No Does patient have a Durable POA for Healthcare: No
[2024-02-11] MEDS: HYDROMORPHONE HCL 1 MG/ML INJ IV PRN (13:00)
[2024-02-11] MEDS ORDERED: HYDROMORPHONE HCL 1 MG/ML INJ ONE (13:12)
[2024-02-11] MEDS: NA CHLORIDE 0.9% 1,000 ML IV SCH ×2 (15:27→17:11)
[2024-02-11] MEDS: Levofloxacin500mg IV 500 MG/100 ML BAG IV SCH (15:27)
--- NOTE | 2024-02-11 15:31 | RAD REPORT ---
EXAMINATION: ONE VIEW CHEST XR CLINICAL INDICATION: SOB TECHNIQUE: Frontal chest projection is submitted. Examination is limited by patient positioning and t echnique. COMPARISON: 02/11/2024 FINDINGS: Interval moderate reduction in the size of the left pleural effusion noted. Left-sided small bore catheter noted. The h eart is mildly enlarged in size. Right-sided venous catheter is tip in the right atrium. Right lung is grossly clear.
--- NOTE | 2024-02-11 17:39 | P.CNS ---
Date of Consult: 02/11/24 Reason for Consult: HYpoNA Chief Complaint: large left pleural effusion, hyponatremia History of Present Illness: 68 year old male with Pmhx lung cancer, hypertension, COPD, asthma, hypercholesterolemia, tobacco and marijuana abuse presents to the ED with chief complaint of shortness of breath and chest pain. pt has lung cancer was discovered on , had chemotherapy 3 weeks ago and has malaginat left pleural effusion S/p chest tube in place , to drain every 3 days.. at presentation images revealed left pleural infusion .. lab revealed Na of 119 for which nephrology has been consulted.. upon my evaluation , pt was sitting and comfortable having his dinner , on room air , no in respiratory distress , feels much better after draining the pleural effusion , denies N/V , but has poor appetite for the last few months. Allergies Penicillins Allergy (Verified 01/19/24 08:58) Hives/Rash Home Medications: Ezetimibe [Zetia*] 10 mg PO DAILY 11/16/23 Nebivolol HCl 2.5 mg PO DAILY 11/16/23 Olmesartan Medoxomil 20 mg PO BEDTIME 11/16/23 tadalafiL [Cialis] 5 mg PO DAILY 11/16/23 terbinafine HCL [Terbinafine HCl] 250 mg PO DAILY 11/16/23 traMADol HCL [Ultram*] 50 mg PO Q6H PRN 4 Days #15 tab 11/17/23 Budesonide/Formoterol Fumarate [Symbicort 160-4.5 Mcg Inhaler] 1 inhaler PO PRN PRN 01/18/24 Doxepin HCl [Sinequan*] 1 tab PO PRN PRN 01/18/24 Gabapentin [Neurontin*] 1 tab PO TID 01/18/24 - Past Medical/Surgical History Diabetic: No -: Hyperlipidemia -: Hypertension -: COPD -: Malignant lung cancer -: Pleurx catheter - Social History Smoking Status: Current every day smoker Alcohol use: Yes CD- Drugs: Yes Review of Systems Respiratory: Shortness of Breath Cardiovascular: Chest Pain Physical Examination Temp Pulse Resp BP Pulse Ox 97.9 F 97 H 19 144/97 H 100 02/11/24 10:14 02/11/24 12:04 02/11/24 13:00 02/11/24 12:04 02/11/24 13:00 General: Alert, Oriented x3, Cooperative, Other (on room air ) HEENT: Atraumatic Respiratory: Other (decrease air entry on left side , left side chest tube , with bloody fluid ) Cardiovascular: No edema, Normal pulses, Normal S1 S2 Gastrointestinal: Soft and benign Musculoskeletal: No clubbing, No swelling Integumentary: No rashes External genitalia: No edema Laboratory Data (last 24 hrs) 02/11/24 02/11/24 02/11/24 10:39 10:39 10:39 WBC 43.10 H Hgb 11.4 L Hct 34.8 L Plt Count 152 PT 14.5 H INR 1.30 Sodium 119 L* Potassium 5.3 H BUN 6 L Creatinine 0.46 L Glucose 95 Magnesium 2.3 Total Bilirubin 0.5 AST 31 ALT 30 Alkaline Phosphatase 746 H Lipase 69 Conclusions/Impression: 1.sever Hyponatremia : pending serum , urine osm and urine nA would start fluid restriction 1500 ml/day , pt already started on NS IV fluid now pending the repeat BMP , if NA worsening , please stop the IV fluid also monitor UOP , strict intake and output 2.HYPERKa : mild 5.3 , repeat lab 3.Kidney function : stable 4.euvolemic to exam 5.HTN: acceptable 6.malignant pleural effusion S/p drain
[2024-02-11 18:40] VITALS: BMI 19.8
[2024-02-11 18:48] LABS: Sqamous Epithelial None Seen /HPF (None Seen); Urine Bacteria None Seen /HPF (<20); Urine Bilirubin NEGATIVE (Negative); Urine Blood Trace (Negative); Urine Clarity Clear (Clear); Urine Color Light-Yellow (Yellow); Urine Culture Reflex Order NOT NEEDED; Urine Glucose NEGATIVE (Negative); Urine Ketones 1+ (Negative); Urine Microscopic Reflex YN ORDER UMIC; Urine Nitrite NEGATIVE (Negative); Urine Protein TRACE (Negative); Urine RBC <5 /HPF (None Seen); Urine Urobilinogen Normal (Normal); Urine WBC <5 /HPF (<5); Urine pH 7.5 (5.0-7.0)
[2024-02-11 18:51] LABS: Specific Gravity > 1.030 (1.005-1.030)
[2024-02-11] MEDS ORDERED: MELATONIN 5 MG TABLET PO PRN (22:15)
[2024-02-11 22:38] LABS: Anion Gap 12.3 mEq/L (5.0-15.0); Magnesium 2.2 mg/dL (1.6-2.4); Potassium 5.3 mEq/L (3.5-5.1)
[2024-02-11] MEDS: SODIUM ZIRCONIUM CYCLOSILICATE 10 GM/PKT PO ONE (23:11)
[2024-02-11] MEDS: TRAZODONE 50 MG TABLET PO PRN (23:11)
[2024-02-12 02:55] LABS: Anion Gap 11.8 mEq/L (5.0-15.0); Potassium 4.8 mEq/L (3.5-5.1)
[2024-02-12 06:36] LABS: Absolute Basophils 0.1 K/uL (0-0.5); Absolute Eosinophils 0.1 K/uL (0-0.5); Absolute Lymphocytes (CBC) 2.8 K/uL (0.7-4.9); Absolute Monocytes 2.4 K/uL (0.1-1.3); Basophils % 0.3 % (0-1.3); Eosinophils % 0.4 % (0-4.4); Hematocrit 26.6 % (39.6-49.0); Hemoglobin 8.7 g/dL (13.6-17.9); MCH 29.9 pg (27.0-35.0); MCHC 32.8 g/dL (32.0-36.0); MCV 91.2 fL (80-100); MPV 7.2 fL (7.6-11.3); Monocytes % 7.1 % (3.3-12.3); Neutrophils % 84.2 % (41.7-73.7); Nucleated RBC Absolute Count 0.1 (0-0); Nucleated Red Blood Cells % 0.2 % (0-0); Platelets 142 thou/uL (152-406); RBC Red Blood Cell Count 2.92 M/uL (4.33-5.43); Red Cell Distribution Width 14.2 % (12.1-15.2)
[2024-02-12 06:58] LABS: Anion Gap 13.6 mEq/L (5.0-15.0); Magnesium 2.2 mg/dL (1.6-2.4); Phosphorus 3.7 mg/dL (2.5-4.9); Potassium 4.6 mEq/L (3.5-5.1); Troponin High Sensitivity 21.1 pg/mL (<58.9)
[2024-02-12] MEDS ORDERED: ASPIRIN EC 81 MG TAB PO SCH (09:00)
[2024-02-12] MEDS: NA CHLORIDE 0.9% 1,000 ML IV SCH (09:01)
[2024-02-12] MEDS: HYDROMORPHONE ORAL 2 MG TAB ONE (09:50)
[2024-02-12] MEDS: HYDROMORPHONE ORAL 2 MG TAB PO PRN (09:55)
--- NOTE | 2024-02-12 09:57 | P.PN ---
Nephrology note (S) Pt's Na level improving on isotonic saline IVF, no acute complaints, appetite has been lower recently, does not care for hospital food, no active n/v/d (O) Vitals reviewed in the EMR Pt seen lying in bed, NAD, not on O2, no rales or rhonchi noted, Lt pleural catheter, RRR mostly, abd soft, NT, NT, no sig LE edema. Awake, alert, oriented Labs reviewed in the EMR A/P 1. Acute on chronic hyponatremia, multifactorial with a component of hypovolemia and true Na deficit (random Ashley < 20) likely on a background of SIADH (Uosm > 300, 2nd to malignancy, pulm condition, other) with Na level approp rising from 119 to 125 this AM. 2. Will lower rate of NS IVF and repeat Na level in 6h 3. Encourage PO solute intake and fluid restriction 4. Hx of essential HTN but with soft BP this AM, would hold ARB medication currently in that setting
--- NOTE | 2024-02-12 12:04 | RAD REPORT ---
Procedure: Chest Single View HISTORY: Shortness of breath COMPARISON: February 11, 2024 FINDINGS: Moderate to large left pleural effusion with left atelectasis. Left pleural catheter with its tip medial left lower hemithorax. Right lung appears clear of acute infiltrate. The heart is normal size. Central venous catheter with its tip in the right atrium. . IMPRESSION: Moderate to large left pleural effusion with left atelectasis Left pleural catheter in place.
--- NOTE | 2024-02-12 12:05 | P.CNS ---
Date of Consult: 02/12/24 Reason for Consult: Malignant left-sided pleural effusion Chief Complaint: large left pleural effusion, hyponatremia History of Present Illness: Patient is 68 years of age with metastatic adenocarcinoma associated with left- sided malignant pleural effusion currently undergoing chemotherapy developed sudden onset of left-sided chest pain and was admitted to the hospital he is currently effusion has been drained about 3 times a week he came in with also significantly elevated white count and hyponatremia Allergies Penicillins Allergy (Verified 01/19/24 08:58) Hives/Rash Home Medications: Ezetimibe [Zetia*] 10 mg PO DAILY 11/16/23 Nebivolol HCl 2.5 mg PO DAILY 11/16/23 Olmesartan Medoxomil 20 mg PO BEDTIME 11/16/23 terbinafine HCL [Terbinafine HCl] 250 mg PO DAILY 11/16/23 traMADol HCL [Ultram*] 50 mg PO Q6H PRN 4 Days #15 tab 11/17/23 Doxepin HCl [Sinequan*] 1 tab PO PRN PRN 01/18/24 Gabapentin [Neurontin*] 100 mg PO TID 01/18/24 Folic Acid 0.8 mg PO ONCE 02/11/24 Folic Acid 1 mg PO ONCE 02/11/24 Gabapentin 300 mg PO TID 02/11/24 Hydrocodone Bit/Acetaminophen [Hydrocodon-Acetaminoph 7.5-325] 7.5 - 325 mg PO PRN PRN MDD 4 02/11/24 Rosuvastatin [Crestor*] 10 mg PO ONCE 02/11/24 - Past Medical/Surgical History Diabetic: No -: Hyperlipidemia -: Hypertension -: COPD -: Malignant lung cancer metastatic adenocarcinoma -: Pleurx catheter - Social History Smoking Status: Current every day smoker Alcohol use: Yes CD- Drugs: Yes Caffeine use: Yes Review of Systems 10-point ROS is otherwise unremarkable Physical Examination Temp Pulse Resp BP Pulse Ox 97.2 F 88 16 96/65 97 02/12/24 08:00 02/12/24 08:00 02/12/24 11:02 02/12/24 08:00 02/12/24 11:02 General: Alert, In no apparent distress, Oriented x3 Neck: Supple Respiratory: Diminished (Diminished on the left side) Cardiovascular: No edema, Normal S1 S2 Gastrointestinal: Normal bowel sounds, Soft and benign - Problems (1) Pleural effusion Current Visit: No Status: Acute Plan: Patient is 68 years of age has a history of metastatic adenocarcinoma status post left-sided Pleurx catheter admitted with severe discomfort after draining 800 cc apparently gets chest discomfort after drainage I have advised him to reduce the amount of fluid drained and to stop when he starts noticing any form of discomfort white count is probably elevated from the [place] he has borderline hyponatremia urinary sodium is low osmolality is within normal will have to inquire about water consumption currently stable to be discharged home no antibiotics needed
[2024-02-12] MEDS: Levofloxacin 750mg IV 750 MG/150 ML BAG IV SCH (12:32)
--- NOTE | 2024-02-12 19:05 | P.PN ---
Subjective Date of Service: 02/12/24 Chief Complaint: large left pleural effusion, hyponatremia Patient complaining of intermittent chest pain with shortness of breath. About 800 mL of left pleural fluid was drained yesterday. Sodium level improved. No recorded fever. Physical Examination - Vital Signs Temperature: 97.6 F Blood Pressure: 99/63 Pulse: 91 Respirations: 16 Pulse Ox (%): 99 Assessment And Plan - Plan Physical examination General: Alert and oriented x3, NAD, HEENT: Conjunctiva not pale, anicteric sclera Neck: Supple, no elevated JVD Heart: Heart sounds 1 and 2 normal, regular rhythm, normal rate, no pedal edema Lungs: Clear to auscultation bilaterally, diminished breath sounds on the left, no rhonchi or crackles. Abdomen: Soft, nondistended, nontender, normal bowel sounds. Extremities: No tenderness, no deformity Skin: Normal skin turgor, no rash, no nodules or ulcers. Neuro: No focal motor deficit. Normal speech. Psychiatry: Normal mood, no agitation. Assessment and plan Large Left Malignant pleural effusion. History of lung cancer Hx COPD/asthma Leukocytosis -Leukocytosis likely related to Epogen injection prior to admit and dexamethasone. -Leukocytosis is trending down. -Pleurx catheter in place. About 750 mL bloody fluid drained yesterday. -IPH drains Left pleural space with Pleurx weekly. -Pleurx catheter drain as needed -pain control. Patient reported [place] has not been effective. Stated IV hydromorphone very much helped his pain. -[place] changed to oral Dilaudid. Monitor response. -Continue n.p.o. Levaquin IV -Continue other home medications Hyponatremia SIADH -Hyponatremia likely secondary to SIADH -Sodium level slightly improved -Continue IV NS -nephrology input appreciated. -Fluid restriction. -Hold doxepin. Hyperkalemia -Corrected -Monitor BMP HTN Hypercholesterolemia -Continue home medication DVT prophylaxis: SCD Advanced directive: Full code
[2024-02-12] MEDS ORDERED: FOLIC ACID 1 MG TABLET PO SCH (20:00)
[2024-02-12] MEDS: FOLIC ACID 1 MG TABLET PO ONE (20:14)
[2024-02-12] MEDS: GABAPENTIN 300 MG CAP PO SCH (20:14)
[2024-02-12] MEDS: ROSUVASTATIN 10 MG TAB PO ONE (20:14)
[2024-02-12] MEDS: ENSURE ENLIVE 237 ML CAN PO SCH (20:51)
[2024-02-12 23:08] LABS: Anion Gap 11.5 mEq/L (5.0-15.0); Potassium 4.5 mEq/L (3.5-5.1)
[2024-02-13 06:22] LABS: Absolute Basophils 0.1 K/uL (0-0.5); Absolute Eosinophils 0.1 K/uL (0-0.5); Absolute Lymphocytes (CBC) 2.4 K/uL (0.7-4.9); Absolute Monocytes 3.1 K/uL (0.1-1.3); Basophils % 0.4 % (0-1.3); Eosinophils % 0.3 % (0-4.4); Hematocrit 28.2 % (39.6-49.0); Hemoglobin 9.5 g/dL (13.6-17.9); Lymphocytes % 7.2 % (15.3-44.8); MCH 30.4 pg (27.0-35.0); MCHC 33.8 g/dL (32.0-36.0); MCV 90.1 fL (80-100); MPV 6.8 fL (7.6-11.3); Monocytes % 9.4 % (3.3-12.3); Neutrophils % 82.7 % (41.7-73.7); Nucleated RBC Absolute Count 0.1 (0-0); Nucleated Red Blood Cells % 0.2 % (0-0); Platelets 164 thou/uL (152-406); RBC Red Blood Cell Count 3.13 M/uL (4.33-5.43); Red Cell Distribution Width 14.3 % (12.1-15.2)
[2024-02-13 06:30] LABS: Anion Gap 10.5 mEq/L (5.0-15.0); Magnesium 2.3 mg/dL (1.6-2.4); Phosphorus 3.5 mg/dL (2.5-4.9); Potassium 4.5 mEq/L (3.5-5.1)
[2024-02-13] MEDS: EZETIMIBE 10 MG TAB PO SCH (09:04)
[2024-02-13] MEDS: terbinafine HCL 250 MG TAB PO SCH (09:05)
[2024-02-13] MEDS ORDERED: SODIUM CHLORIDE 1 GM TAB PO SCH (10:15)
[2024-02-13] MEDS ORDERED: UREA 15 GM POWDER PACKET PO SCH (10:15)
[2024-02-13] MEDS: TOLVAPTAN 15 MG TABLET PO SCH (10:20)
[2024-02-13 11:09] LABS: Anion Gap 9.6 mEq/L (5.0-15.0); Potassium 4.6 mEq/L (3.5-5.1)
--- NOTE | 2024-02-13 11:22 | P.PN ---
Nephrology note (S) Pt's Na level improving partially on isotonic saline IVF, but now plateaued at 125, no acute complaints, some mild dyspnea but has not been walking around or exerting himself, last pleural drainage a few days ago (O) Vitals reviewed in the EMR Pt seen lying in bed, NAD, not on O2, no rales or rhonchi noted, Lt pleural catheter, reduced BS Lt base, RRR mostly, abd soft, NT, NT, no sig LE edema. Awake, alert, oriented Labs reviewed in the EMR A/P 1. Acute on chronic hyponatremia, multifactorial with a component of hypovolemia and true Na deficit (random Ashley < 20) likely on a background of SIADH (Uosm > 300, 2nd to malignancy, pulm condition, other) with Na level approp rising from 119 to 125 but then failing to rise further. 2. Will dose Tolvaptan 15 mg PO once and recheck na level 4-6h later, on discharge, he can take salt tabs and Ure-Na 15 gm qd 3. Encourage PO solute intake and fluid restriction 4. Hx of essential HTN but with soft BP, would hold ARB medication currently 5. Lt pleural effusion NOS -drainage schedule/amount per pulm/IM
--- NOTE | 2024-02-13 11:28 | RAD REPORT ---
EXAM: Chest Single View HISTORY: Chest pain COMPARISON: Yesterday FINDINGS: LUNGS/PLEURA: Large left pleural effusion with pleural catheter in place. The overall volume of fluid is slightly increased. MEDIASTINUM: Partially obscured. CARDIAC: Largely obscured. UPPER ABDOMEN: No significant abnormality. BONES: No acute fracture. LINES/TUBES/OTHER: Left-sided tunneled pleural catheter in place. Right upper chest wall Port-A-Cath with tip at the right atrium IMPRESSION: Slight increased large left pleural effusion and likely underlying atelectasis. Tunneled left-sided p leural catheter in similar positioning..
[2024-02-13 17:44] LABS: Anion Gap 8.7 mEq/L (5.0-15.0); Potassium 4.7 mEq/L (3.5-5.1)
--- NOTE | 2024-02-13 18:39 | P.PN ---
Date of Service: 02/13/24 Subjective Date of Service: 02/12/24 Chief Complaint: large left pleural effusion, hyponatremia He report feeling much better Sodium improving but need to monitor overnight, Dr. Rios following Chest pain overnight, troponin and EKG negative ROS 10 point ROS as noted above, otherwise negative Physical Examination General: AAOx3, NAD, HEENT: Conjunctiva not pale, anicteric sclera Neck: Supple, no elevated JVD Heart: Heart sounds 1 and 2 normal, mild tachycardia, no pedal edema Lungs: Clear to auscultation bilaterally, diminished breath sounds on the left, on RA Abdomen: Soft, ND/NT, normal bowel sounds. Extremities: No tenderness, no deformity Skin: Normal skin turgor, no rash, no nodules or ulcers. Neuro: No focal motor deficit. Normal speech. Psychiatry: Normal mood, no agitation. Vitals Reviewed Problem list Large Left Malignant pleural effusion. History of lung cancer Hx COPD/asthma Leukocytosis Hyponatremia SIADH Hyperkalemia Hypertension Hypercholesterolemia Assessment and plan Large Left Malignant pleural effusion. History of lung cancer Hx COPD/asthma Leukocytosis -CXR 02/12 "Slight increased large left pleural effusion and likely underlying atelectasis. Tunneled left-sided pleural catheter in similar positioning " -Leukocytosis likely related to Epogen injection prior to admit and dexamethasone. -Leukocytosis is trending down. -Pleurx catheter in place. About 950 mL bloody fluid drained 02/10. -IPH drains Left pleural space with Pleurx weekly. -Pleurx catheter drain as needed -pain control. Patient reported [place] has not been effective. Stated IV hydromorphone very much helped his pain. -[place] changed to oral Dilaudid. Monitor response. -Levaquin IV -Continue other home medications -Dr. Kendall consulted Hyponatremia SIADH -Hyponatremia likely secondary to SIADH -Sodium level slightly improved -Continue IV NS -nephrology input appreciated. -Fluid restriction. -Hold doxepin. Hyperkalemia -Corrected -Monitor BMP Hypertension -Patient with soft blood pressure -Hold home antihypertensives for now. Hypercholesterolemia -Continue home medication DVT prophylaxis: SCD Advanced directive: Full code
[2024-02-14 04:04] VITALS: O2SAT 98
[2024-02-14 05:51] LABS: Absolute Basophils 0.1 K/uL (0-0.5); Absolute Eosinophils 0.1 K/uL (0-0.5); Absolute Lymphocytes (CBC) 2.3 K/uL (0.7-4.9); Absolute Monocytes 3.4 K/uL (0.1-1.3); Absolute Neutrophil 25.6 K/uL (1.8-8.0); Basophils % 0.4 % (0-1.3); Eosinophils % 0.5 % (0-4.4); Hematocrit 26.7 % (39.6-49.0); Hemoglobin 9.1 g/dL (13.6-17.9); Lymphocytes % 7.3 % (15.3-44.8); MCH 30.8 pg (27.0-35.0); MCHC 33.9 g/dL (32.0-36.0); MCV 90.8 fL (80-100); MPV 6.6 fL (7.6-11.3); Monocytes % 10.7 % (3.3-12.3); Neutrophils % 81.1 % (41.7-73.7); Nucleated RBC Absolute Count 0.1 (0-0); Nucleated Red Blood Cells % 0.3 % (0-0); Platelets 158 thou/uL (152-406); RBC Red Blood Cell Count 2.95 M/uL (4.33-5.43); Red Cell Distribution Width 14.2 % (12.1-15.2)
[2024-02-14 06:07] LABS: Albumin 2.4 g/dL (3.4-5.0); Albumin/Globulin Ratio 0.8 (1.1-1.8); Anion Gap 10.7 mEq/L (5.0-15.0); Bilirubin Total 0.3 mg/dL (0.2-1.0); Globulin 3.2 g/dL (2.3-3.5); Magnesium 2.4 mg/dL (1.6-2.4); Phosphorus 3.7 mg/dL (2.5-4.9); Potassium 4.7 mEq/L (3.5-5.1); Protein, Total 5.6 g/dL (6.4-8.2)
[2024-02-14] MEDS: UREA 15 GM POWDER PACKET PO SCH (08:22)
[2024-02-14] MEDS: SODIUM CHLORIDE 1 GM TAB PO SCH (08:23)
[2024-02-14 09:17] VITALS: BP 109/64; TEMP 98.3
[2024-02-14 09:43] LABS: Band Neutrophils 8 % (0-1); Differential Total Cells Count 100; Lymphocytes 6 % (15-42); Segmented Neutrophils 72 % (40-80)
[2024-02-14 09:44] LABS: Blood Morphology Comment NOTED (NOT SEEN); Eosinophils 1 % (0-3); Metamyelocytes 1 % (0-0); Monocytes 8 % (0-10); Myelocytes 3 % (0-0); Nucleated Red Blood Cells 2 /100WBC; Platelet Estimate ADEQ
[2024-02-14 09:45] LABS: Polychromasia SLIGHT
--- NOTE | 2024-02-14 10:32 | P.PN ---
Nephrology note (S) Pt's Na level improved to > 130, pt feels better overall, no dyspnea at rest reported (O) Vitals reviewed in the EMR Pt seen lying in bed, NAD, not on O2, no rales or rhonchi noted, Lt pleural catheter, reduced BS Lt base, RRR mostly, abd soft, NT, NT, no sig LE edema. Awake, alert, oriented Labs reviewed in the EMR A/P 1. Acute on chronic hyponatremia, multifactorial with a component of hypovolemia and true Na deficit (random Ashley < 20) likely on a background of SIADH (Uosm > 300, 2nd to malignancy, pulm condition, other) with Na level approp rising from 119 to 125 but then failing to rise further. 2. Did dose Tolvaptan 15 mg PO once yesterday and Na now > 130 this AM. on discharge, he can take salt tabs and Ure-Na 15 gm qd 3. Encouraged PO solute intake and fluid restriction to be continued 4. Hx of essential HTN but with soft BP, would hold ARB medication currently 5. Lt pleural effusion NOS -drainage schedule/amount per pulm/IM
--- NOTE | 2024-02-14 13:05 | P.DS ---
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 He has a complicated history of lung cancer with chronic pleural effusions requiring weekly draining. Dr. Blackwell placed the catheter to the left lung space in November. While in the ED, Plurex drain applied with 750 ml out then stopped d/t increased pain. Laboratory evaluation significant for WBC 43, sodium 119, potassium 5.3, alk phos 743. CTA Thorax reports "No evidence of pulmonary emboli to the subsegmental level. Large left pleural effusion with catheter in place. Sclerotic bony lesions compatible with metastatic disease." CXR reports "Large left pleural effusion is noted. The right lung appears grossly clear. Right-sided venous catheters tip in SVC. Left-sided smallbore chest tube noted" Pastor will be admitted to hospitalist service for further treatment of Left pleural effusion, Hyponatremia. Hospital Course: Problem list Large Left Malignant pleural effusion. History of lung cancer Hx COPD/asthma Leukocytosis Hyponatremia SIADH Hyperkalemia Hypertension Hypercholesterolemia Patient was admitted to the hospital for pleural effusion, hyponatremia. He is currently being treated for lung cancer and he has a Pleurx catheter in place. He had been having significant of the pain when draining/after draining his Pleurx catheter and also his sodium was 119 on admission. Nephrology followed patient during hospitalization, he was found to have acute on chronic hyponatremia which is likely multifactorial with a component of hypovolemia and SIADH. He was given a dose of tolvaptan and had significant improvement. On discharge she will be prescribed salt tablets twice daily and urea 15 g daily. Case was discussed with pulmonology and his surgeon who placed the Pleurx catheter, plan to reduce draining frequency from every third day to once weekly with slower rate/more frequent pausing and drainage. General surgery states if needing to drain between the weekly drainage if he is symptomatic with shortness of breath they may drain it at home but no more than 1 L at a time. Continue other home medications as previously prescribed Follow-up with pulmonologyDrEliazar Bailey, nephrologyDrEliazar Rios for further care, repeat labs to recheck the sodium levels. Vital Signs/Physical Exam: Temp Pulse Resp BP Pulse Ox 98.3 F 103 H 14 109/64 95 02/14/24 08:00 02/14/24 08:00 02/14/24 11:27 02/14/24 08:00 02/14/24 11:27 General: Alert, In no apparent distress, Oriented x3 HEENT: Atraumatic, PERRLA Neck: Supple, JVD not distended Respiratory: Clear to auscultation bilaterally, Normal air movement, Other (Pleurx catheter in place) Cardiovascular: Regular rate/rhythm, Normal S1 S2 Gastrointestinal: Normal bowel sounds, No tenderness Musculoskeletal: No tenderness Integumentary: No rashes Neurological: Normal speech, Normal tone, Normal affect Laboratory Data at Discharge: WBC 31.50 thou/uL (4.3-10.9) H 02/14/24 05:27 Hgb 9.1 g/dL (13.6-17.9) L 02/14/24 05:27 Hct 26.7 % (39.6-49.0) L 02/14/24 05:27 Plt Count 158 thou/uL (152-406) 02/14/24 05:27 PT 14.5 SECONDS (9.4-12.5) H 02/11/24 10:39 INR 1.30 02/11/24 10:39 Sodium 132 mEq/L (136-145) L 02/14/24 05:27 Potassium 4.7 mEq/L (3.5-5.1) 02/14/24 05:27 BUN 8 mg/dL (7-18) 02/14/24 05:27 Creatinine 0.55 mg/dL (0.70-1.30) L 02/14/24 05:27 Glucose 92 mg/dL (74-106) 02/14/24 05:27 Phosphorus 3.7 mg/dL (2.5-4.9) 02/14/24 05:27 Magnesium 2.4 mg/dL (1.6-2.4) 02/14/24 05:27 Total Bilirubin 0.3 mg/dL (0.2-1.0) 02/14/24 05:27 AST 31 U/L (15-37) 02/14/24 05:27 ALT 22 U/L (16-61) 02/14/24 05:27 Alkaline Phosphatase 655 U/L (45-117) H 02/14/24 05:27 Lipase 69 U/L (13-75) 02/11/24 10:39 Home Medications: Ezetimibe [Zetia*] 10 mg PO DAILY 11/16/23 Nebivolol HCl 2.5 mg PO DAILY 11/16/23 Olmesartan Medoxomil 20 mg PO BEDTIME 11/16/23 terbinafine HCL [Terbinafine HCl] 250 mg PO DAILY 11/16/23 traMADol HCL [Ultram*] 50 mg PO Q6H PRN 4 Days #15 tab 11/17/23 Doxepin HCl [Sinequan*] 1 tab PO PRN PRN 01/18/24 Gabapentin [Neurontin*] 100 mg PO TID 01/18/24 Folic Acid 0.8 mg PO ONCE 02/11/24 Folic Acid 1 mg PO ONCE 02/11/24 Gabapentin 300 mg PO TID 02/11/24 Hydrocodone Bit/Acetaminophen [Hydrocodon-Acetaminoph 7.5-325] 7.5 - 325 mg PO PRN PRN MDD 4 02/11/24 Rosuvastatin [Crestor*] 10 mg PO ONCE 02/11/24 Sodium Chloride Tab [Sodium Chloride*] 1 gm PO BID #60 tab 02/14/24 Urea [Ure-Na] 15 gm PO DAILY #30 packet 02/14/24 New Medications: Sodium Chloride Tab [Sodium Chloride*] 1 gm PO BID #60 tab Urea [Ure-Na] 15 gm PO DAILY #30 packet Physician Discharge Instructions: Patient was admitted to the hospital for pleural effusion, hyponatremia. He is currently being treated for lung cancer and he has a Pleurx catheter in place. He had been having significant of the pain when draining/after draining his Pleurx catheter and also his sodium was 119 on admission. Nephrology followed patient during hospitalization, he was found to have acute on chronic hyponatremia which is likely multifactorial with a component of hypovolemia and SIADH. He was given a dose of tolvaptan and had significant improvement. On discharge she will be prescribed salt tablets twice daily and urea 15 g daily. Case was discussed with pulmonology and his surgeon who placed the Pleurx catheter, plan to reduce draining frequency from every third day to once weekly with slower rate/more frequent pausing and drainage. General surgery states if needing to drain between the weekly drainage if he is symptomatic with shortness of breath they may drain it at home but no more than 1 L at a time. Continue other home medications as previously prescribed Follow-up with pulmonologyDrEliazar Bailey, nephrologyDrEliazar Rios for further care, repeat labs to recheck the sodium levels. Diet: Regular Activity: Ad jil Followup: Jean-Pierre Kendall MD [ACTIVE - CAN ADMIT] - 1-2 Weeks Hari Rios [ACTIVE - CAN ADMIT] - 1-2 Weeks Kory Blackwell MD [ACTIVE - CAN ADMIT] - 1-2 Weeks Jovan Santana MD [Primary Care Provider] - 1-2 Weeks Time spent managing pt's care (in minutes): 45
== END 2024-02-14 11:50 | disposition home health service (06) | DRG 180 ==
LOC: ER 10:05 → ERHOLD 12:21 → 2ND 13:34
PROVIDERS: ADMIT Internal Medicine; ATTEND Hospitalist
PROC: 0W9B30Z Drainage of Left Pleural Cavity with Drainage Device, Percutaneous Approach (ICD-10-PCS; principal; 2024-02-11)
DX: C34.32 Malignant neoplasm of lower lobe, left bronchus or lung (principal); E43 Unspecified severe protein-calorie malnutrition; J91.0 Malignant pleural effusion; Z68.1 Body mass index [BMI] 19.9 or less, adult; E22.2 Syndrome of inappropriate secretion of antidiuretic hormone; E78.00 Pure hypercholesterolemia, unspecified; D72.825 Bandemia; E87.6 Hypokalemia; I10 Essential (primary) hypertension; E87.5 Hyperkalemia; J44.9 Chronic obstructive pulmonary disease, unspecified; F17.210 Nicotine dependence, cigarettes, uncomplicated; Z88.0 Allergy status to penicillin; Z79.899 Other long term (current) drug therapy
CPT/HCPCS: 36415; 71045; 71275; 80048; 80053; 80076; 81001; 83690; 83735; 83880; 83930; 83935; 84100; 84295; 84300; 84484; 85025; 85610; 96361; 96374; 96375; 99284; J1171; J2405; J7030; J8499; Q9967

== ENCOUNTER 2024-02-26 17:50 | Emergency (ER) | payer OTHER ==
--- NOTE | 2024-02-26 18:52 | RAD REPORT ---
EXAMINATION: ONE VIEW CHEST XR CLINICAL INDICATION: Male, 68 years old.,Cough;Dyspnea TECHNIQUE: Frontal chest projection is submitted. Examination is limited by patient positioning and t echnique. COMPARISON: 02/13/2024 FINDINGS: Mildly progressive opacification of the left hemithorax, with stable positioning of left Pleurx yanna ter. Right lung remains clear. Right chest wall Port-A-Cath unchanged in position. No pneumothorax or right-sided effusion. The heart is normal in size. Mediastinal contours are unremarkable. IMPRESSION: Large left-sided effusion, appears somewhat progressive compared to the preceding x-ray, with stable positioning of the pleural drainage catheter.
[2024-02-26 20:07] LABS: Absolute Eosinophils 0.1 K/uL (0-0.5); Absolute Lymphocytes (CBC) 1.5 K/uL (0.7-4.9); Absolute Monocytes 0.3 K/uL (0.1-1.3); Absolute Neutrophil 10.4 K/uL (1.8-8.0); Basophils % 0.2 % (0-1.3); Eosinophils % 0.8 % (0-4.4); Hematocrit 25.6 % (39.6-49.0); Hemoglobin 8.6 g/dL (13.6-17.9); Lymphocytes % 12.2 % (15.3-44.8); MCH 30.2 pg (27.0-35.0); MCHC 33.6 g/dL (32.0-36.0); MCV 89.7 fL (80-100); MPV 7.7 fL (7.6-11.3); Monocytes % 2.1 % (3.3-12.3); Neutrophils % 84.7 % (41.7-73.7); Platelets 22 thou/uL (152-406); RBC Red Blood Cell Count 2.85 M/uL (4.33-5.43); Red Cell Distribution Width 16.4 % (12.1-15.2)
[2024-02-26 20:09] LABS: Protime INR 1.35
[2024-02-26] MEDS ORDERED: NA CHLORIDE 0.9% 100 ML ONE (20:15)
[2024-02-26] MEDS ORDERED: FAMOTIDINE 20 MG/2 ML VIAL IV ONE (20:15)
[2024-02-26] MEDS ORDERED: CEFEPIME 1 GM/VIAL ONE (20:16)
[2024-02-26 20:21] LABS: Specific Gravity 1.028 (1.005-1.030); Sqamous Epithelial None Seen /HPF (None Seen); Urine Bacteria None Seen /HPF (<20); Urine Bilirubin NEGATIVE (Negative); Urine Blood Negative (Negative); Urine Clarity Clear (Clear); Urine Color Light-Yellow (Yellow); Urine Culture Reflex Order NOT NEEDED; Urine Glucose NEGATIVE (Negative); Urine Ketones 1+ (Negative); Urine Microscopic Reflex YN ORDER UMIC; Urine Nitrite NEGATIVE (Negative); Urine Protein 1+ (Negative); Urine Urobilinogen Normal (Normal); Urine WBC <5 /HPF (<5); Urine WBC Clump Rare /HPF (None Seen)
[2024-02-26 20:24] LABS: Albumin 2.4 g/dL (3.4-5.0); Albumin/Globulin Ratio 0.6 (1.1-1.8); Anion Gap 10.5 mEq/L (5.0-15.0); Bilirubin Direct 0.2 mg/dL (0-0.2); Bilirubin Indirect, Calculated 0.4 mg/dL (0.2-0.8); Bilirubin Total 0.6 mg/dL (0.2-1.0); Globulin 3.9 g/dL (2.3-3.5); Magnesium 2.3 mg/dL (1.6-2.4); Potassium 4.5 mEq/L (3.5-5.1); Protein, Total 6.3 g/dL (6.4-8.2)
[2024-02-26 20:42] LABS: SARS-CoV-2 Antigen CONTROL BLUE LINE VIS/BG OK; SARS-CoV-2 Antigen Rapid Res Negative (Negative)
[2024-02-26] MEDS ORDERED: ONDANSETRON 4 MG/2 ML VIAL ONE (21:34)
[2024-02-26] MEDS ORDERED: HYDROCORTISONE SUC 100 MG INJ ONE (21:34)
[2024-02-26] MEDS ORDERED: HYDROMORPHONE HCL 1 MG/ML INJ ONE (21:34)
[2024-02-26] MEDS ORDERED: NA CHLORIDE 0.9% 1,000 ML ONE (21:35)
[2024-02-26] MEDS ORDERED: ALBUMIN HUMAN 25% 200 ML IV ONE (21:35)
--- NOTE | 2024-02-26 21:45 | ER ---
Nurse's Notes [facility] Name: Pastor Salter Age: 68 yrs Sex: Male : 1955 Arrival Date: 02/26/2024 Time: 17:50 Bed 7 Private MD: Diagnosis: Pleural effusion in other conditions classified elsewhere;Malignant pleural effusion;Hemorrhagic Pleural effusion , Symptomatic Anemia, Thrombocytopenia , Hyponatremia, ;Generalized weakness Presentation: 02/25 18:48 Chief complaint: Patient states: SHORTNESS OF BREATH THAT HAS BEEN GOING ON OVER THE cm10 LAST FEW DAYS. PT HAD PLEURAL EFFUSION DRAINED TODAY ON LEFT LUNG. PT REPORTS SOME RELIEF WITH SHORTNESS OF BREATH BUT IS STILL HAVING SHORTNESS OF BREATH. PT ALSO REPORTS WEAKNESS. LAST CHEMO ON 02/21/24 ([facility]). Coronavirus screen: Client denies travel out of the [place] in the last 14 days. Ebola Screen: Patient denies travel to an Ebola-affected area in the 21 days before illness onset. No symptoms or risks identified at this time. Initial Sepsis Screen: Does the patient meet any 2 criteria? HR > 90 bpm. Does the patient have a suspected source of infection? No. Patient's initial sepsis screen is negative. Risk Assessment: Do you want to hurt yourself or someone else? Patient reports no desire to harm self or others. Onset of symptoms was February 26, 2024. 18:48 Method Of Arrival: Wheelchair cm10 18:48 Acuity: MARYAM 3 cm10 Triage Assessment: 18:52 General: Appears in no apparent distress. uncomfortable, Behavior is calm, cooperative. cm10 Neuro: No deficits noted. Level of Consciousness is awake, alert, obeys commands, Oriented to person, place, time, situation, Appropriate for age. Respiratory: No deficits noted. Reports shortness of breath Airway is patent Respiratory effort is even, unlabored, Respiratory pattern is regular, symmetrical. Historical: - Allergies: 18:51 PENICILLINS; cm10 - PMHx: 18:51 Chronic obstructive lung disease; Hypercholesterolemia; Hypertensive disorder; LUNG cm10 CANCER; - PSHx: 18:51 PORT-A-CATH; cm10 - Immunization history:: Adult Immunizations up to date. - Infectious Disease History:: Denies. - Social history:: Smoking status: Patient/guardian denies using tobacco, Stopped _ months ago 3. Screenin:20 [facility] ED Fall Risk Assessment (Adult) History of falling in the last 3 months, ay including since admission No falls in past 3 months (0 pts) Confusion or Disorientation No (0 pts) Intoxicated or Sedated No (0 pts) Impaired Gait No (0 pts) Mobility Assist Device Used No (0 pt) Altered Elimination No (0 pt) Score/Fall Risk Level 0 - 2 = Low Risk Oriented to surroundings, Maintained a safe environment, Educated pt \T\ family on fall prevention, incl call for assistance when getting out of bed. Abuse screen: Denies threats or abuse. Nutritional screening: No deficits noted. Tuberculosis screening: No symptoms or risk factors identified. Assessment: 21:20 General: Appears in no apparent distress. uncomfortable, Behavior is calm, cooperative. ay Pain: Complains of pain in chest Pain currently is 8 out of 10 on a pain scale. 21:20 Neuro: Level of Consciousness is awake, alert, Oriented to person, place, time, ay situation, Speech is normal. Cardiovascular: Heart tones S1 S2 Capillary refill < 3 seconds Rhythm is regular. Respiratory: Airway is patent Respiratory effort is labored, Respiratory pattern is regular, Breath sounds are diminished bilaterally. GI: Abdomen is flat, Bowel sounds present X 4 quads. : No signs and/or symptoms were reported regarding the genitourinary system. EENT: No signs and/or symptoms were reported regarding the EENT system. Derm: No signs and/or symptoms reported regarding the dermatologic system. Musculoskeletal: No signs and/or symptoms reported regarding the musculoskeletal system. 22:55 Reassessment: Report called in to TAMIA Gallardo, the receiving RN. ay 23:26 General: Pt transferred to [facility] in the [place]. ay Vital Signs: 18:48 BP 123 / 80; Pulse 102; Resp 19; Temp 97.3(TE); Pulse Ox 95% on R/A; Weight 62.14 kg; cm10 Height 5 ft. 8 in. ; Pain 9/10; 22:00 BP 123 / 85; Pulse 100; Resp 15; Temp 97.3; Pulse Ox 99% ; Pain 8/10; bm8 18:48 Body Mass Index 20.83 (62.14 kg, 172.72 cm) cm10 18:48 Pain Scale: Adult cm10 22:00 Pain Scale: Adult bm8 Bonilla Coma Score: 21:20 Eye Response: spontaneous(4). Motor Response: obeys commands(6). Verbal Response: ay oriented(5). Total: 15. 21:31 Eye Response: spontaneous(4). Motor Response: obeys commands(6). Verbal Response: sp4 oriented(5). Total: 15. 22:00 Eye Response: spontaneous(4). Motor Response: obeys commands(6). Verbal Response: bm8 oriented(5). Total: 15. ED Course: 17:51 Patient arrived in ED. im 17:55 Javi Mccullough MD is Attending Physician. jose 18:20 XRAY Chest (1 view) In Process Unspecified. EDMS 18:50 Triage completed. cm10 18:52 Arm band placed on left wrist. Patient placed in an exam room, on a stretcher. cm10 19:06 Madhu Marie, RN is Primary Nurse. ay 20:10 SARS RAPID Sent. ay 20:10 Flu Sent. ay 20:10 Urinalysis w/ reflexes Sent. ay 20:11 Lactate w/ 2H reflex if indic. Sent. ay 20:11 Blood Culture Adult (2) Sent. ay 20:11 Type And Screen Sent. ay 20:11 Basic Metabolic Panel Sent. ay 20:11 CBC with Diff Sent. ay 20:11 LFT's Sent. ay 20:11 Magnesium Sent. ay 20:12 Troponin HS Sent. ay 20:12 NT PRO-BNP Sent. ay 20:57 Attending Physician role handed off by Javi Mccullough MD sp4 20:57 Giovanni Chamberlain MD is Attending Physician. sp4 21:20 Patient has correct armband on for positive identification. Bed in low position. Call ay light in reach. Side rails up X2. Adult w/ patient. Provided Education on: care plan. 21:20 No provider procedures requiring assistance completed. ay 21:35 Initiated transfer with Laura at [facility]. rv1 21:45 Initial lab(s) drawn, First set of blood cultures drawn by me, Second set of blood ay cultures drawn by me, Urine collected: clean catch specimen, clear, EKG done, by ED staff, COVID swab sent to lab. Flu and/or RSV swab sent to lab. Inserted saline lock: 20 gauge in right antecubital area, using aseptic technique. Oxygen administration via nasal cannula \T\ 2L/min. 21:47 [facility] [place] at [facility]. Patient okay with [place]. Laura will rv1 call back for doc to doc. 22:32 Pt accepted to [facility] by Dr. Pacheco to ICU 257. Report #[id number]. rv1 23:22 Patient transferred, IV remains in place. ay Administered Medications: 20:34 Drug: Cefepime IVPB 1 grams IVPB at 200 ml/hr once over 30 mins; (mix in NS 100 mL) ay Route: IVPB; Rate: 200 ml/hr; Infused Over: 30 mins; Site: right antecubital; : Follow up: Response: No adverse reaction ay 22: Follow up: IV Status: Completed infusion; IV Intake: 100ml ay 20:34 Drug: Famotidine IVP 20 mg IVP once; dilute with 10 mL 0.9% NaCl; give over 2 minutes ay Route: IVP; Site: right antecubital; :27 Follow up: Response: No adverse reaction ay 22:00 Drug: Albumin IVPB 25 grams 100 ml IVPB once; (Note: Albumin 25% concentration) Volume: ay 100 ml; Route: IVPB; Site: right antecubital; 22:14 Follow up: Response: No adverse reaction ay 22:59 Follow up: IV Status: Completed infusion; IV Intake: 100ml ay 22:00 Drug: HYDROmorphone IVP 1 mg IVP once Route: IVP; Site: right antecubital; ay 22:13 Follow up: Response: No adverse reaction ay 22:00 Drug: Ondansetron IVP 4 mg IVP once; over 2 minutes Route: IVP; Site: right antecubital;ay 22:13 Follow up: Response: No adverse reaction ay 22:00 Drug: Solu-CORTEF IVP 100 mg IVP once Route: IVP; Site: right antecubital; ay 22:13 Follow up: Response: No adverse reaction ay 22:59 Drug: Albumin IVPB 25 grams 100 ml IVPB once; (Note: Albumin 25% concentration) Volume: ay 100 ml; Route: IVPB; Site: right antecubital; 23:17 Follow up: Response: No adverse reaction ay 23:27 Follow up: IV Status: Infusion continued upon transfer ay 23:17 Drug: NS 0.9% IV 1000 ml IV at 125 ml/hr Per protocol; to be given as a bolus over 60 ay minutes Route: IV; Rate: 125 ml/hr; Site: right antecubital; 23:28 Follow up: IV Status: Infusion continued upon transfer ay Medication: 21:20 VIS not applicable for this client. ay Intake: 22:01 IV: 100ml; Total: 100ml. ay 22:59 IV: 100ml; Total: 200ml. ay Outcome: 21:44 ER care complete, transfer ordered by MD. desir 23:22 Transferred by ground EMS Transfer form completed. X-rays sent w/ patient. ay 23:22 Condition: stable 23:22 Instructed on the need for transfer, Demonstrated understanding of follow-up care, 23:29 Patient left the ED. ay Signatures: Dispatcher [employer] EDMS Javi Mccullough MD MD cha Villegas, Rebecca rv1 Giovanni Chamberlain MD MD sp4 Mimi Sanchez Clarissa, RN RN cm10 Bradley Martins, RN RN bm8 Madhu Marie, RN RN ay
--- NOTE | 2024-02-26 21:45 | EDPHYS ---
Physician Documentation [facility] Name: Patsor Salter Age: 68 yrs Sex: Male : 1955 Arrival Date: 02/26/2024 Time: 17:50 Bed 7 Private MD: ED Physician Giovanni Chamberlain HPI: 02/25 21:27 This 68 yrs old Male presents to ER via Wheelchair with complaints of sp4 Shortness Of Breath - 3 days, General Weakness. 21:27 Patient is 68-year-old male with history of left lung cancer, left malignant pleural sp4 effusion, COPD, asthma, leukocytosis, hyponatremia, SIADH, hyperkalemia, hypertension, hypercholesterolemia. History of left-sided pleural catheter and right-sided vascular port . Last chemotherapy 02/21/[address] Francisco. Patient has pleural catheter that has been draining bloody fluid yesterday and today.. For the past 3 days patient had increasing shortness of breath and generalized weakness. Patient was managed here 02/11/2024 through 02/14/2024 for pleural effusion and hyponatremia. Patient was prescribed salt tablets on discharge. Patient's medications include ezetimibe 10 mg daily, nebivolol 2.5 mg daily, olmesartan 20 mg bedtime , terbinafine to 50 mg daily, tramadol 50 mg as needed, doxepin 1 tab as needed, gabapentin 100 mg 3 times daily, folic acid 1 mg daily, [place] 7 as needed pain, Crestor 10 mg daily, sodium chloride 1 mg twice daily, and sodium tabs daily.. Historical: - Allergies: 18:51 PENICILLINS; cm10 - PMHx: 18:51 Chronic obstructive lung disease; Hypercholesterolemia; Hypertensive disorder; LUNG cm10 CANCER; - PSHx: 18:51 PORT-A-CATH; cm10 - Immunization history:: Adult Immunizations up to date. - Infectious Disease History:: Denies. - Social history:: Smoking status: Patient/guardian denies using tobacco, Stopped _ months ago 3. ROS: 21:31 Constitutional: Negative for fever, chills, and weight loss, positive for generalized sp4 weakness, positive shortness of breath, positive bloody pleural fluid 21:31 All other systems are negative, Exam: 21:31 Constitutional: Patient is frail heavily debilitated male, signs of weight loss, sp4 signs of physical deconditioning, right side chest wall vascular port, left lower chest pleural catheter.. Head/Face: Normocephalic, atraumatic. Eyes: Pupils equal round and reactive to light, extra-ocular motions intact. Lids and lashes normal. Conjunctiva and sclera are not injected. Cornea within normal limits. Periorbital areas with no swelling, redness, or edema. ENT: Nares patent. No nasal discharge, no septal abnormalities noted. Tympanic membranes are normal and external auditory canals are clear. Oropharynx with no redness, swelling, or masses, exudates, or evidence of obstruction, uvula midline. Mucous membranes moist. Neck: Trachea midline, no thyromegaly or masses palpated, and no cervical lymphadenopathy. Supple, full range of motion without nuchal rigidity, or vertebral point tenderness. Chest/axilla: Normal chest wall appearance and motion. Nontender with no deformity. No lesions are appreciated. Cardiovascular: Regular rate and rhythm with a normal S1 and S2. No gallops, murmurs, or rubs. Normal PMI, no JVD. No pulse deficits. Respiratory: Absent breath sounds on the left, dullness to percussion on the left, right lung sounds are normal. Abdomen/GI: Soft, with normal bowel sounds. No distension or tympany. No guarding or rebound. No evidence of tenderness throughout. Back: No spinal tenderness. No costovertebral tenderness. Male : Normal genitalia with no discharge or lesions. Skin: Warm, dry with normal turgor. Normal color with no rashes, no lesions, and no evidence of cellulitis. MS/ Extremity: Pulses equal, no cyanosis. Neurovascular intact. Full, normal range of motion. Moderate to severe muscular atrophy bilateral lower extremity pitting edema Neuro: Awake and alert, GCS 15, oriented to person, place, time, and situation. Cranial nerves II-XII grossly intact. Motor strength 5/5 in all extremities. Sensory grossly intact. Psych: Awake, alert, with orientation to person, place and time. Behavior, mood, and affect are within normal limits Vital Signs: 18:48 BP 123 / 80; Pulse 102; Resp 19; Temp 97.3(TE); Pulse Ox 95% on R/A; Weight 62.14 kg; cm10 Height 5 ft. 8 in. ; Pain 9/10; 22:00 BP 123 / 85; Pulse 100; Resp 15; Temp 97.3; Pulse Ox 99% ; Pain 8/10; bm8 18:48 Body Mass Index 20.83 (62.14 kg, 172.72 cm) cm10 18:48 Pain Scale: Adult cm10 22:00 Pain Scale: Adult bm8 Bonilla Coma Score: 21:20 Eye Response: spontaneous(4). Motor Response: obeys commands(6). Verbal Response: ay oriented(5). Total: 15. 21:31 Eye Response: spontaneous(4). Motor Response: obeys commands(6). Verbal Response: sp4 oriented(5). Total: 15. 22:00 Eye Response: spontaneous(4). Motor Response: obeys commands(6). Verbal Response: bm8 oriented(5). Total: 15. MDM: 17:56 Medical Screening Exam initiated jose 20:16 ED course: dr starr to dispo. [facility] 21:42 Differential diagnosis: asthma, Bronchitis CHF exacerbation, Chronic Obstructive sp4 Pulmonary Disease pneumonia, Pneumothorax. Antibiotic administration: Given in ER . Data reviewed: vital signs, nurses notes, lab test result(s), radiologic studies, CT scan. ED course: EXAMINATION: ONE VIEW CHEST XR CLINICAL INDICATION: Male, 68 years old.,Cough;Dyspnea TECHNIQUE: Frontal chest projection is submitted. Examination is limited by patient positioning and technique. COMPARISON: 02/13/2024 FINDINGS: Mildly progressive opacification of the left hemithorax, with stable positioning of left Pleurx catheter. Right lung remains clear. Right chest wall Port-A-Cath unchanged in position. No pneumothorax or right-sided effusion. The heart is normal in size. Mediastinal contours are unremarkable. IMPRESSION: Large left-sided effusion, appears somewhat progressive compared to the preceding x-ray, with stable positioning of the pleural drainage catheter. . 22:59 ED course: Patient was accepted to [facility]. Patient will be sp4 sent there by ground EMS.. 02/25 17:57 Order name: Basic Metabolic Panel; Complete Time: 20:57 [facility] 02/25 17:57 Order name: CBC with Diff; Complete Time: 05:31 [facility] 02/25 17:57 Order name: LFT's; Complete Time: 20:57 [facility] 02/25 17:57 Order name: Magnesium; Complete Time: 20:57 [facility] 02/25 17:57 Order name: NT PRO-BNP; Complete Time: 20:57 [facility] 02/25 17:57 Order name: PT-INR; Complete Time: 20:10 [facility] 02/25 17:57 Order name: Troponin HS; Complete Time: 20:57 [facility] 02/25 17:57 Order name: Type And Screen; Complete Time: 20:57 [facility] 02/25 17:57 Order name: Blood Culture Adult (2) [facility] 02/25 17:57 Order name: Lactate w/ 2H reflex if indic.; Complete Time: 20:57 [facility] 02/25 17:57 Order name: Urinalysis w/ reflexes; Complete Time: 20:57 [facility] 02/25 17:57 Order name: Flu; Complete Time: 20:57 [facility] 02/25 17:57 Order name: SARS RAPID; Complete Time: 20:57 [facility] 02/25 22:40 Order name: CBC Smear Scan; Complete Time: 05:31 [facility] 02/25 17:57 Order name: XRAY Chest (1 view); Complete Time: 20:10 [facility] 02/25 17:57 Order name: EKG; Complete Time: 17:58 [facility] 02/25 17:57 Order name: Cardiac monitoring; Complete Time: 20:11 [facility] 02/25 17:57 Order name: EKG - Nurse/Tech; Complete Time: 20:11 [facility] 02/25 17:57 Order name: IV Saline Lock; Complete Time: 20:11 [facility] 02/25 17:57 Order name: Labs collected and sent; Complete Time: 20:11 [facility] 02/25 17:57 Order name: O2 Per Protocol; Complete Time: 20:11 [facility] 02/25 17:57 Order name: O2 Sat Monitoring; Complete Time: 20:33 [facility] Administered Medications: 20:34 Drug: Cefepime IVPB 1 grams IVPB at 200 ml/hr once over 30 mins; (mix in NS 100 mL) ay Route: IVPB; Rate: 200 ml/hr; Infused Over: 30 mins; Site: right antecubital; 21:27 Follow up: Response: No adverse reaction ay 22:01 Follow up: IV Status: Completed infusion; IV Intake: 100ml ay 20:34 Drug: Famotidine IVP 20 mg IVP once; dilute with 10 mL 0.9% NaCl; give over 2 minutes ay Route: IVP; Site: right antecubital; 21:27 Follow up: Response: No adverse reaction ay 22:00 Drug: Albumin IVPB 25 grams 100 ml IVPB once; (Note: Albumin 25% concentration) Volume: ay 100 ml; Route: IVPB; Site: right antecubital; 22:14 Follow up: Response: No adverse reaction ay 22:59 Follow up: IV Status: Completed infusion; IV Intake: 100ml ay 22:00 Drug: HYDROmorphone IVP 1 mg IVP once Route: IVP; Site: right antecubital; ay 22:13 Follow up: Response: No adverse reaction ay 22:00 Drug: Ondansetron IVP 4 mg IVP once; over 2 minutes Route: IVP; Site: right antecubital;ay 22:13 Follow up: Response: No adverse reaction ay 22:00 Drug: Solu-CORTEF IVP 100 mg IVP once Route: IVP; Site: right antecubital; ay 22:13 Follow up: Response: No adverse reaction ay 22:59 Drug: Albumin IVPB 25 grams 100 ml IVPB once; (Note: Albumin 25% concentration) Volume: ay 100 ml; Route: IVPB; Site: right antecubital; 23:17 Follow up: Response: No adverse reaction ay 23:27 Follow up: IV Status: Infusion continued upon transfer ay 23:17 Drug: NS 0.9% IV 1000 ml IV at 125 ml/hr Per protocol; to be given as a bolus over 60 ay minutes Route: IV; Rate: 125 ml/hr; Site: right antecubital; 23:28 Follow up: IV Status: Infusion continued upon transfer ay Disposition: 21:45 Critical Care:. sp4 Disposition Summary: 02/26/24 21:44 Transfer Ordered Notes: Transfer Location: [facility] sp4 Reason: Higher level of care sp4 Condition: Stable sp4 Problem: new sp4 Symptoms: have improved sp4 Accepting Physician: Jorge Attending (02/26/24 23:29) ay Diagnosis - Pleural effusion in other conditions classified elsewhere sp4 - Malignant pleural effusion sp4 - Hemorrhagic Pleural effusion , Symptomatic Anemia, Thrombocytopenia , sp4 Hyponatremia, - Generalized weakness sp4 Forms: - Medication Reconciliation Form sp4 - SBAR form sp4 Critical care time excluding procedures: 21:45 Critical care time: Bedside Care: 36 minutes, Consultation: 12 minutes, Family sp4 Intervention: 12 minutes. Total time: 60 minutes Signatures: Dispatcher [employer] Javi Alvarez MD MD cha Potepalov, Sergey, MD MD sp4 Martinez, Clarissa RN TAMIA cm10 Madhu Marie RN RN ay Corrections: (The following items were deleted from the chart) 23:29 21:44 [facility] Attending MD desir ay
[2024-02-26 22:39] LABS: Blood Morphology Comment NOT SEEN (NOT SEEN); Platelet Estimate DECR; White Blood Cell Scan OK (OK)
[2024-02-26 23:40] VITALS: TEMP 97.3
[2024-02-26 23:46] VITALS: BP 123/85; O2SAT 99
--- NOTE | 2024-02-29 11:36 | EKG ---
Test Date: 2024-02-26 Test Time: 19:20:11 Surgery Assistant: PITER MEASUREMENT RESULTS: Intervals: Rate: 97 SD: 116 QRSD: 82 QT: 364 QTc: 462 [place]: P: 45 SD: 116 QRS: 58 T: 63 INTERPRETIVE STATEMENTS: Normal sinus rhythm Nonspecific T wave abnormality Prolonged QT Abnormal ECG Compared to ECG 02/11/2024 10:09:33 T-wave abnormality now present Prolonged QT interval now present Electronically Signed On 02-29-24 11:34:22 CLINICAL TECH by Ethan Gonzales
== END 2024-02-26 23:29 | disposition short-term general hospital (02) ==
LOC: ER 17:50
DX: C34.32 Malignant neoplasm of lower lobe, left bronchus or lung (principal); J91.0 Malignant pleural effusion; D64.9 Anemia, unspecified; D69.6 Thrombocytopenia, unspecified; E87.1 Hypo-osmolality and hyponatremia; J44.9 Chronic obstructive pulmonary disease, unspecified; I10 Essential (primary) hypertension; Z11.52 Encounter for screening for COVID-19
CPT/HCPCS: 96365; 87040 ×2; 85025; 81001; 80048; 36415; 86900; 83735; 86850; 85610; 86901; 80076; 83605; 84484; 83880; 87804 ×2; 71045; 96375; 99285; 96366; 87811; J1171; J1720; J2405; P9047; J7030; J0692; 93005